=== PATIENT | female | born 1945 | race Caucasian/White ===

== ENCOUNTER 2017-10-26 16:17 | Inpatient (IN) | payer MEDICARE, OTHER ==
[~2017-10-26] VITALS: Ht 152.4 cm; Wt 47.9 kg
[2017-10-26] VITALS (12 sets, daily range): BP systolic 79–103; BP diastolic 50–75
[2017-10-26] MEDS ORDERED: ACETAMINOPHEN 500 MG TAB (TYLENOL) PO PRN (16:45)
[2017-10-26] MEDS ORDERED: ONDANSETRON 4 MG/2 ML (SDV) Z0FRAN IVP PRN (16:45)
[2017-10-26] MEDS ORDERED: methylPREDNISolone 40 MG/ML (Solu-MEDROL) VIAL IV SCH (18:00)
[2017-10-26 18:13] LABS: ABG BASE EXCESS -2.9 MMOL/L (-2.5-2.5); ABG OXYGEN SATURATION 88 % (94-100); ABG PCO2 44 MMHG (35-45); ABG PO2 55 MMHG (79-93); ABG TCO2 23.7 MMOL/L (21.0-31.0)
[2017-10-26 18:15] LABS: ABG PH 7.33 (7.37-7.43); ALLENS TEST POSITIVE; INSPIRED O2 35% BIPAP; PATIENT TEMP 97.4; VENTILATOR NO
[2017-10-26] MEDS: RT-ALBUTEROL/IPRATROPIUM 3 ML (DUONEB) VIAL INH SCH ×2 (18:24→22:15)
[2017-10-26 18:27] LABS: BASOPHILS % (AUTO) 0 % (0-10); EOSINOPHILS % (AUTO) 0 % (0-10); HEMATOCRIT 23 % (35-52); HEMOGLOBIN 7.4 G/DL (11.5-16.0); LYMPHOCYTES # (AUTO) 0.2 X 10^3 (1.0-4.0); LYMPHOCYTES % (AUTO) 2 % (12-44); MEAN CORPUSCULAR HEMOGLOBIN 32 PG (25-34); MEAN CORPUSCULAR HGB CONC 32 G/DL (32-36); MEAN CORPUSCULAR VOLUME 99 FL (80-99); MEAN PLATELET VOLUME 9.1 FL (7.4-10.4); MONOCYTES # (AUTO) 0.1 X 10^3 (0.0-1.0); MONOCYTES % (AUTO) 1 % (0-12); NEUTROPHILS # (AUTO) 10.6 X 10^3 (1.8-7.8); NEUTROPHILS % (AUTO) 97 % (42-75); PLATELET COUNT 317 10^3/uL (130-400); RED BLOOD COUNT 2.34 10^6/uL (4.35-5.85); RED CELL DISTRIBUTION WIDTH 14.3 % (10.0-14.5)
[2017-10-26] MEDS ORDERED: CATHETER FLUSH 10 ML SYR IV PRN (18:30)
[2017-10-26 18:45] LABS: ALANINE AMINOTRANSFERASE 12 U/L (0-55); ALBUMIN 2.7 GM/DL (3.2-4.5); ALKALINE PHOSPHATASE 46 U/L (40-136); BILIRUBIN,TOTAL 0.1 MG/DL (0.1-1.0); BUN/CREATININE RATIO 27; CALCIUM 6.6 MG/DL (8.5-10.1); CARBON DIOXIDE 21 MMOL/L (21-32); CHLORIDE 113 MMOL/L (98-107); CREATININE SERUM 0.55 MG/DL (0.60-1.30); GFR ESTIMATED > 60; GLUCOSE 145 MG/DL (70-105); POTASSIUM 4.1 MMOL/L (3.6-5.0); SODIUM 141 MMOL/L (135-145); TOTAL PROTEIN 4.9 GM/DL (6.4-8.2)
[2017-10-26] MEDS ORDERED: NS IV 500 ML 500 ML IV ONE (20:30)
[2017-10-26] MEDS: RT-BUDESONIDE NEBS 0.5 MG/2ML (PULMICORT) AMP INH SCH (20:32)
[2017-10-26] MEDS: LORazepam INJ 2 MG/ML (ATIVAN) VIAL IVP PRN (20:44)
[2017-10-26] MEDS: NS IV 1000 ML 1,000 ML IV SCH (20:52)
[2017-10-26 21:28] LABS: BILIRUBIN,URINE NEGATIVE (NEGATIVE); CLARITY,URINE VERY CLOUDY; COLOR,URINE YELLOW; GLUCOSE, URINE (UA) NEGATIVE (NEGATIVE); KETONES,URINE NEGATIVE (NEGATIVE); LEUKOCYTE ESTERASE ,URINE 3+ (NEGATIVE); NITRITE,URINE NEGATIVE (NEGATIVE); PH,URINE 6 (5-9); PROTEIN,URINE 2+ (NEGATIVE); UROBILINOGEN,URINE NORMAL (NORMAL)
[2017-10-26] MEDS ORDERED: meTOprolol 5 MG/5 ML (LOPRESSOR) VIAL IV NR (21:30)
[2017-10-26 21:39] LABS: BACTERIA,URINE FEW /HPF; WBC,URINE 50-100 /HPF
[2017-10-26] MEDS ORDERED: RT-ALBUTEROL/IPRATROPIUM 3 ML (DUONEB) VIAL INH PRN (21:45)
[2017-10-27] VITALS (35 sets, daily range): BP systolic 79–135; BP diastolic 49–80
[2017-10-27] MEDS ORDERED: VANCOMYCIN 1000 MG/VIAL ONE
[2017-10-27] MEDS ORDERED: NS (IVPB) 0 ML ONE
[2017-10-27] MEDS: NS IV 1000 ML 1,000 ML IV SCH ×3 (00:34→12:13)
[2017-10-27] MEDS: RT-ALBUTEROL/IPRATROPIUM 3 ML (DUONEB) VIAL INH SCH ×6 (02:05→22:46)
[2017-10-27] MEDS ORDERED: methylPREDNISolone 40 MG/ML (Solu-MEDROL) VIAL IV SCH (03:00)
[2017-10-27 04:57] LABS: ABG BASE EXCESS -3.8 MMOL/L (-2.5-2.5); ABG OXYGEN SATURATION 98 % (94-100); ABG PCO2 30 MMHG (35-45); ABG PH 7.44 (7.37-7.43); ABG PO2 89 MMHG (79-93); ABG TCO2 20.6 MMOL/L (21.0-31.0)
[2017-10-27 04:58] LABS: ALLENS TEST YES-POS; INSPIRED O2 30%; PATIENT TEMP 98.6; VENTILATOR NO
[2017-10-27 05:27] LABS: BASOPHILS % (AUTO) 0 % (0-10); EOSINOPHILS # (AUTO) 0.1 10^3/uL (0.0-0.3); EOSINOPHILS % (AUTO) 0 % (0-10); HEMATOCRIT 26 % (35-52); HEMOGLOBIN 8.4 G/DL (11.5-16.0); LYMPHOCYTES # (AUTO) 0.5 X 10^3 (1.0-4.0); LYMPHOCYTES % (AUTO) 4 % (12-44); MEAN CORPUSCULAR HEMOGLOBIN 32 PG (25-34); MEAN CORPUSCULAR HGB CONC 32 G/DL (32-36); MEAN CORPUSCULAR VOLUME 100 FL (80-99); MEAN PLATELET VOLUME 9.4 FL (7.4-10.4); MONOCYTES # (AUTO) 0.1 X 10^3 (0.0-1.0); MONOCYTES % (AUTO) 1 % (0-12); NEUTROPHILS # (AUTO) 10.8 X 10^3 (1.8-7.8); NEUTROPHILS % (AUTO) 94 % (42-75); PLATELET COUNT 332 10^3/uL (130-400); RED BLOOD COUNT 2.61 10^6/uL (4.35-5.85); RED CELL DISTRIBUTION WIDTH 14.7 % (10.0-14.5); WHITE BLOOD COUNT 11.5 10^3/uL (4.3-11.0)
[2017-10-27] MEDS: fentaNYL INJECTION 100 MCG/2 ML AMP IVP PRN ×3 (05:40→23:50)
[2017-10-27 05:56] LABS: ALANINE AMINOTRANSFERASE 12 U/L (0-55); ALBUMIN 2.9 GM/DL (3.2-4.5); ALKALINE PHOSPHATASE 51 U/L (40-136); BILIRUBIN,TOTAL 0.2 MG/DL (0.1-1.0); BUN/CREATININE RATIO 26; CALCIUM 7.1 MG/DL (8.5-10.1); CARBON DIOXIDE 17 MMOL/L (21-32); CHLORIDE 114 MMOL/L (98-107); GFR ESTIMATED > 60; GLUCOSE 129 MG/DL (70-105); POTASSIUM 4.1 MMOL/L (3.6-5.0); SODIUM 145 MMOL/L (135-145); TOTAL PROTEIN 5.4 GM/DL (6.4-8.2)
--- NOTE | 2017-10-27 06:02 | Pulmonary Consultation ---
History of Present Illness History of Present Illness Date of Consultation 10/27/17 05:57 Time Seen by Provider: 05:57 Date of Admission History of Present Illness 72yo presented to [facility] [place] secondary to worsening SOB. Upon ED admission pt appeared to be in respiratory distress transferred here for higher level of care. Pt was requiring BiPAP however is doing much better this AM. I am consulted for pulmonary/CC management. Allergies and Home Medications Allergies Coded Allergies: No Known Drug Allergies (Unverified , 10/26/17) Home Medications Alprazolam 0.25 Mg Tablet, 0.125 MG PO BID PRN for ANXIETY, (Reported) Amoxicillin/Potassium Clav 1 Each Tablet, 1 TAB PO BID for 7 Days, (Reported) 7 DAY SUPPLY FILLED 10-25-17 Ascorbic Acid 500 Mg Tablet, 500 MG PO 1300, (Reported) Aspirin 81 Mg Tablet.dr, 81 MG PO BID, (Reported) Budesonide/Formoterol Fumarate 10.2 Gm Hfa.aer.ad, 2 PUFF INH 1500,2100, ( Reported) Calcium Carbonate/Vitamin D3 1 Each Tablet, 1 TAB PO 1500,2100, (Reported) Calcium Polycarbophil 625 Mg Tablet, 625 MG PO UD, (Reported) TAKES DAILY X3 DAYS THEN OFF 3 DAYS THEN REPEAT Esomeprazole Magnesium 40 Mg Cap, 40 MG PO BID, (Reported) Ferrous Sulfate 220 Mg/5 Ml Elixir, 5 ML PO BID, (Reported) Furosemide 20 Mg Tablet, 20 MG PO DAILY, (Reported) Garlic 500 Mg Tablet, 1 TAB PO BID, (Reported) Garlic 500 Mg Tablet, 2 TAB PO 1300, (Reported) Glucosa Pierce 2Kcl/Chondroitin Pierce 1 Each Capsule, 1 CAP PO DAILY, (Reported) Guaifenesin/Dextromethorphan 1 Each Tbmp.12hr, 1 TAB PO BID, (Reported) Ibandronate Sodium 150 Mg Tablet, 150 MG PO MONTHLY ON THE 1ST, (Reported) Ipratropium/Albuterol Sulfate 3 Ml Ampul.neb, 3 ML IH Q6H PRN for SHORTNESS OF BREATH, (Reported) Levothyroxine Sodium 50 Mcg Tablet, 50 MCG PO DAILY, (Reported) Methylprednisolone 4 Mg Tab.ds.pk, PO UD for 6 Days, (Reported) 6 DAY SUPPLY FILLED 10-25-17 Metoprolol Succinate 25 Mg Tab.er.24h, 25 MG PO DAILY, (Reported) Nystatin 15 Gm Cream..g., TOP QID PRN for RASH, (Reported) [place] 3 Polyunsat Fatty Acids 1,000 Mg Cap, 2,000 MG PO DAILY, (Reported) TAKES 2 (1000MG) CAPSULES Oxymetazoline HCl 30 Ml [place], 2-3 SPRAY NS BID PRN for CONGESTION, (Reported) Potassium Chloride 10 Meq Tab.er.prt, 10 MEQ PO DAILY, (Reported) Raloxifene HCl 60 Mg Tablet, 60 MG PO 1400, (Reported) Tiotropium [place] 1 Inh Aerp, 1 CAP INH DAILY, (Reported) Past Sehuzir-Xkavxc-Igedcq Hx Patient Social History Alcohol Use: Denies Use Recreational Drug Use: No Smoking Status: Former Smoker Type Used: Cigarettes Recent Foreign Travel: No Contact w/Someone Who Travel: No Recent Infectious Disease Expo: No Recent Hopitalizations: Yes Immunizations Up To Date Date of Pneumonia Vaccine: Oct 17, 2016 Seasonal Allergies Seasonal Allergies: No Surgeries History of Surgeries: Yes Respiratory History of Respiratory Disorde: Yes Respiratory Disorders: COPD, Emphysema Currently Using BIPAP: Yes Cardiovascular History of Cardiac Disorders: Yes (TACHYCARDIA) Neurological History of Neurological Disord: No Genitourinary History of Genitourinary Disor: No Gastrointestinal History of Gastrointestinal Di: Yes Gastrointestinal Disorders: Gastroesophageal Reflux Musculoskeletal History of Musculoskeletal Dis: Yes Musculoskeletal Disorders: Osteoporosis, Fractures Endocrine History of Endocrine Disorders: No HEENT History of HEENT Disorders: No Cancer History of Cancer: No Psychosocial History of Psychiatric Problem: Yes Behavioral Health Disorders: Anxiety Integumentary History of Skin or Integumenta: No Review of Systems Time Seen by Provider: 06:10 Constitutional: Weakness, Malaise Respiratory: Shortness of breath, SOB with excertion, Wheezing Cardiovascular: Palpitations, Paroxysmal Noc. Dyspnea Neurological: Weakness Exam Exam Vital Signs Date Time Temp Pulse Resp B/P (MAP) Pulse Ox O2 Delivery O2 Flow Rate FiO2 10/27/17 05:41 OxyMask 2.00 10/27/17 04:21 108 25 99 30.00 10/27/17 04:09 98.4 NIV Bilevel 10/27/17 04:00 107 19 106/57 (73) 98 NIV Bilevel 30.00 10/27/17 04:00 96 NIV Bilevel 30.00 10/27/17 03:00 111 21 109/75 (86) 99 NIV Bilevel 30.00 10/27/17 02:05 99 24 99 30.00 10/27/17 02:00 101 25 94/61 (72) 100 NIV Bilevel 30.00 10/27/17 01:00 102 10/27/17 01:00 102 25 79/49 (59) 99 NIV Bilevel 30.00 10/27/17 00:43 107 35 99 30.00 10/27/17 00:00 107 14 89/59 (69) 98 NIV Bilevel 30.00 10/27/17 00:00 96 NIV Bilevel 30.00 10/27/17 00:00 98.9 10/26/17 23:00 108 34 97/61 (73) 97 NIV Bilevel 30.00 10/26/17 22:16 96 26 99 30.00 10/26/17 22:00 98 19 80/50 (60) 98 NIV Bilevel 30.00 10/26/17 21:30 112 31 95/65 (75) 97 NIV Bilevel 30.00 10/26/17 21:00 111 33 97/56 (70) 96 NIV Bilevel 25.00 10/26/17 20:33 107 25 93/59 (70) 99 NIV Bilevel 25.00 10/26/17 20:33 107 26 99 30.00 10/26/17 20:00 112 21 96/63 (74) 98 NIV Bilevel 30.00 10/26/17 20:00 98 NIV Bilevel 30.00 10/26/17 19:00 128 10/26/17 19:00 128 28 103/61 (75) 94 NIV Bilevel 30.00 10/26/17 18:45 125 31 92/72 (79) 96 NIV Bilevel 30.00 10/26/17 18:30 112 30 92/75 (81) 99 NIV Bilevel 30.00 10/26/17 18:15 112 28 95/64 (74) 100 NIV Bilevel 30.00 10/26/17 18:02 112 10/26/17 18:00 112 100 35 10/26/17 18:00 97.4 116 30 94/69 (77) 100 NIV Bilevel 30.00 10/26/17 18:00 112 26 100 35.00 10/26/17 17:50 NIV Bilevel 35 I & O 10/27/17 07:00 Intake Total 500 ml Output Total 325 ml Balance 175 ml General Appearance: Anxious, Moderate Distress Neck: No Carotid Bruit Respiratory: Chest Non Tender, Normal Breath Sounds, No Accessory Muscle Use, No Respiratory Distress Cardiovascular: Regular Rate, Rhythm, No Edema, No Gallop Gastrointestinal: non tender, soft Neurologic/Psychiatric: Alert, Oriented x3 Skin: Normal Color, Warm/Dry Lymphatic: No Adenopathy Results Lab Laboratory Tests 10/26/17 18:15 10/27/17 05:05 Assessment/Plan Assessment/Plan Acute Respiratory Distress -BiPAP -Titrate Fi02 COPDAE -SVNs, advair -SOlumedrol Debility/weakness -PT/ot -I question if she needs assisted living UTI -start Zosyn Allergic rhinitis -singulair, claritin, flonase 255 Clinical Quality Measures DVT/VTE Risk/Contraindication: Risk Factor Score Per Nursin RFS Level Per Nursing on Admit: 4+=Very High PINEDA ROBB DO Oct 27, 2017 06:02
[2017-10-27] MEDS ORDERED: PIPERACILLIN SODIUM/TAZOBACTAM 4.5 GM in NS (IVPB) 100 ML IV SCH (06:15)
[2017-10-27] MEDS ORDERED: ENOXAPARIN 40 MG/0.4 ML (LOVENOX) SYR SC SCH (07:00)
[2017-10-27] MEDS: RT-ADVAIR HFA 115/21 MCG PER PUFF IH SCH ×2 (07:07→18:54)
[2017-10-27] MEDS: RT-BUDESONIDE NEBS 0.5 MG/2ML (PULMICORT) AMP INH SCH ×2 (07:07→18:53)
[2017-10-27] MEDS ORDERED: PIPERACILLIN SODIUM/TAZOBACTAM 4.5 GM in NS (IVPB) 100 ML IV NR ×2 (07:15→09:00)
[2017-10-27] MEDS: LORATADINE (CLARITIN) 10 MG TAB PO SCH (08:48)
[2017-10-27] MEDS: SALINE NASAL SPRAY (OCEAN) 45 ML BTL SCH ×4 (08:48→20:12)
[2017-10-27] MEDS: FLUTICASONE NASAL SPRAY (FLONASE) 16 GM BTL NS SCH (08:48)
[2017-10-27] MEDS: ENOXAPARIN 40 MG/0.4 ML (LOVENOX) SYR SC SCH (08:58)
[2017-10-27] MEDS: methylPREDNISolone 40 MG/ML (Solu-MEDROL) VIAL IV SCH ×3 (08:58→20:12)
[2017-10-27] MEDS: PIPERACILLIN SODIUM/TAZOBACTAM 4.5 GM in NS (IVPB) 100 ML IV SCH ×2 (08:58→18:38)
[2017-10-27] MEDS: LORazepam INJ 2 MG/ML (ATIVAN) VIAL IVP PRN ×3 (09:08→20:12)
--- NOTE | 2017-10-27 09:09 | Physical Therapy Progress Note ---
Therapy Progress Note Patient currently on BiPap and declined PT intervention. Per RN, they did a trial off the Bipap and patient was unable to tolerate it and was put back on it. PT will attempt in p.m. 1 visit no treatment rendered SHIRLEY CORTÉS PT Oct 27, 2017 09:09
[2017-10-27] MEDS: guaiFENesin SYRUP 100 MG/5 ML 10 ML (ROBITUSSIN SF) PO PRN (10:20)
--- NOTE | 2017-10-27 11:04 | Occ Therapy Progress Note ---
Therapy Progress Note Order received for OT eval and treat. Chart review completed. Spoke with RN regarding pt status. RN states pt is okay for minimal bed level activity as tolerated, states pt is on Bi-pap and de-sats quickly when off. Attempted OT evaluation at 1030. Pt refused all therapy, states she doesn't feel like participating. Pt states she has shoulder trouble and does not want to participate in any UE activity. Will hold therapy today per pt request and will initiate when pt able to tolerate/participate in functional activity. Discussed with RN. 1, visit CHELLE SOUSA OT Oct 27, 2017 11:04
--- NOTE | 2017-10-27 11:35 | Diagnostic Imaging Report ---
Portable erect AP chest at 5:12 a.m. INDICATION: Respiratory distress. COMPARISON: There are no prior studies available for comparison. FINDINGS: This study is less than optimal as the patient is rotated. The heart size is within normal limits. There are coarse interstitial densities in the right upper lobe. These findings may well be chronic in nature. The possibility that there is an element of acute pneumonia/atelectasis in this region should still be considered. If previous exams are available, they would be helpful with comparison. There is also a 1 cm nodular density along the periphery of the right upper lung. This may be related to the ventilator apparatus as opposed to a parenchymal nodule. The lungs are otherwise generally clear. There is no significant pleural effusion identified. The heart and mediastinum is not widened. The osseous structures are intact. IMPRESSION: 1. The coarse interstitial densities in the right upper lung may be long-standing in nature but the possibility that there is an acute pneumonia/atelectasis should still be considered. If there are no previous exams available for comparison, a followup study would be recommend for continued evaluation. 2. There is no acute cardiopulmonary abnormality noted otherwise. Dictated by: Dictated on workstation # [id number]
--- NOTE | 2017-10-27 11:41 | Physical Therapy Progress Note ---
Therapy Progress Note Patient "waved off" PT and declined therapy intervention on this date. Patient continues to require BiPap for pulmonary issues. Will attempt in a.m. 1 ref SHIRLEY CORTÉS PT Oct 27, 2017 11:41
--- NOTE | 2017-10-27 12:41 | History & Physical-Hospitalist ---
HPI History of Present Illness: HPI/Chief Complaint CC: Transfer [place] [facility] [place] due to [place] failure HPI: This is a [address] Romo who presented to [facility] [place] following exacerbation of COPD and was tranferred to higher level of care at [facility]. 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 Pt tried very hard to discuss something with me that was inaudible through her mask. The RN was asked to help and the pt stated that she wants to wear her own compression stockings, not the ones she has on. Pt was informed that we can contact someone to bring her stockings. Physical exam stable. Scribed by Mariela Vaca under direct supervision of Dr. Lyndsey Acosta. Source: patient Exam Limitations: clinical condition Date Seen 10/27/17 Time Seen by Provider: 11:00 Attending Physician Lyndsey Acosta Lisa A MD Referring Physician Date of Admission Oct 26, 2017 at 17:50 Home Medications & Allergies Home Medications Reviewed patient Home Medication Reconciliation Form Allergies Allergies Coded Allergies No Known Drug Allergies ([id number]/28/17) Past Eguhhug-Mapzkc-Eqjhcc Hx Patient Social History Marrital Status: single Employed/Student: retired Alcohol Use: Denies Use Recreational Drug Use: No Smoking Status: Former Smoker Type Used: Cigarettes Physical Abuse Screen: No Sexual Abuse: No Recent Foreign Travel: No Contact w/other who traveled: No Recent Hopitalizations: Yes Recent Infectious Disease Expo: No Immunizations Up To Date Date of Pneumonia Vaccine: Oct 17, 2016 Seasonal Allergies Seasonal Allergies: No Surgeries Yes Respiratory Yes COPD, Emphysema, Pneumonia Currently Using BIPAP: Yes Cardiovascular Yes (TACHYCARDIA) Neurological No Genitourinary No Gastrointestinal Yes Gastroesophageal Reflux Musculoskeletal Yes Osteoporosis, Fractures Endocrine History of Endocrine Disorders: No HEENT History of HEENT Disorders: No Cancer No Psychosocial History of Psychiatric Problem: Yes Behavioral Health Disorders: Anxiety Integumentary History of Skin or Integumenta: No Review of Systems ROS-Unable to Obtain: unable to ascertain due to biPAP mask Constitutional: see HPI Physical Exam Physical Exam Vital Signs Vital Sign - Last 12Hours 10/26/17 10/26/17 17:50 18:00 Temp 97.4 Pulse 112 Resp 26 B/P (MAP) 94/69 (77) Pulse Ox 100 O2 Delivery NIV Bilevel O2 Flow Rate 35.00 FiO2 35 Capillary Refill : General Appearance: WD/WN, Chronically ill, Cachetic, Mild Distress, Thin Eyes: Bilateral Eye Normal Inspection, Bilateral Eye PERRL HEENT: PERRL/EOMI, Normal ENT Inspection, Pharynx Normal Neck: Full Range of Motion, Normal Inspection, Non Tender, Supple, Carotid Bruit Respiratory: Chest Non Tender, No Accessory Muscle Use, No Respiratory Distress , Decreased Breath Sounds, Wheezing Cardiovascular: Regular Rate, Rhythm, No Edema, No Gallop, No JVD, No Murmur, Normal Peripheral Pulses Gastrointestinal: Normal Bowel Sounds, No Organomegaly, No Pulsatile Mass, Non Tender, Soft Back: Normal Inspection, No CVA Tenderness, No Vertebral Tenderness Extremity: Normal Capillary Refill, Normal Inspection, Normal Range of Motion, Non Tender, No Calf Tenderness, No Pedal Edema Neurologic/Psychiatric: Alert, Oriented x3, No Motor/Sensory Deficits, Depressed Affect Skin: Normal Color, Warm/Dry Lymphatic: No Adenopathy Results Results/Procedures Lab Laboratory Tests 10/26/17 18:15 10/27/17 05:05 Assessment/Plan Admission Diagnosis Assessment: Acute on chronic respiratory failure Acute bronchitis w/early right upper lobe infiltrate on CXR Frail status Chronic 24/7 O2 dependency Assessment and Plan Plan: Obtain compression stockings from home Monitor pt May need intubation Poor prognosis if requires intubation due to severe COPD Appreciate Dr Tubbs's help Clinical Quality Measures DVT/VTE Risk/Contraindication: Risk Factor Score Per Nursin RFS Level Per Nursing on Admit: 4+=Very High LYNDSEY ACOSTA DO Oct 27, 2017 12:41
[2017-10-27] MEDS ORDERED: OXYM30SP NS (13:47)
[2017-10-27] MEDS ORDERED: GUAI1TBM19 PO (13:47)
[2017-10-27] MEDS ORDERED: GLUC1CAP37 PO (13:47)
[2017-10-27] MEDS ORDERED: IPRA3AMP IH (13:47)
[2017-10-27] MEDS ORDERED: RALO60TA12 PO (13:47)
[2017-10-27] MEDS ORDERED: CALC625T68 PO (13:47)
[2017-10-27] MEDS ORDERED: ASCO500T6 PO (13:47)
[2017-10-27] MEDS ORDERED: NYST15CR TOP (13:47)
[2017-10-27] MEDS ORDERED: NF-ESOM40C PO (13:47)
[2017-10-27] MEDS ORDERED: BUDE10.2 INH (13:47)
[2017-10-27] MEDS ORDERED: GARL500T4 PO ×2 (13:47)
[2017-10-27] MEDS ORDERED: FESO45ML PO (13:47)
[2017-10-27] MEDS ORDERED: LEVO50TA6 PO (13:47)
[2017-10-27] MEDS ORDERED: METO-351 PO (13:47)
[2017-10-27] MEDS ORDERED: TIOT18CA2 INH (13:47)
[2017-10-27] MEDS ORDERED: AMOX1TAB12 PO (13:47)
[2017-10-27] MEDS ORDERED: IBAN150T8 PO (13:47)
[2017-10-27] MEDS ORDERED: ALPR0.254 PO (13:47)
[2017-10-27] MEDS ORDERED: POTA10TA14 PO (13:47)
[2017-10-27] MEDS ORDERED: CALC-903 PO (13:47)
[2017-10-27] MEDS ORDERED: FURO20TA4 PO (13:47)
[2017-10-27] MEDS ORDERED: METH4TAB10 PO (13:47)
[2017-10-27] MEDS ORDERED: OMG1KC PO (13:47)
[2017-10-27] MEDS ORDERED: ASPI-983 PO (13:47)
[2017-10-27] MEDS ORDERED: VANCOMYCIN 750 MG/NS 250 ML IVPB IV NR ×2 (16:37)
[2017-10-27] MEDS ORDERED: VANCOMYCIN 500 MG/NS 100 ML IVPB IV SCH ×2 (16:45)
[2017-10-27] MEDS: MONTELUKAST 10 MG (SINGULAIR) TAB PO SCH (20:12)
[2017-10-28] VITALS (27 sets, daily range): BP systolic 103–158; BP diastolic 63–116
[2017-10-28] MEDS: NS IV 1000 ML 1,000 ML IV SCH (01:43)
[2017-10-28] MEDS: RT-ALBUTEROL/IPRATROPIUM 3 ML (DUONEB) VIAL INH SCH ×6 (01:43→21:31)
[2017-10-28] MEDS: PIPERACILLIN SODIUM/TAZOBACTAM 4.5 GM in NS (IVPB) 100 ML IV SCH ×3 (01:43→17:40)
[2017-10-28] MEDS: guaiFENesin SYRUP 100 MG/5 ML 10 ML (ROBITUSSIN SF) PO PRN ×2 (01:43→16:39)
[2017-10-28] MEDS: methylPREDNISolone 40 MG/ML (Solu-MEDROL) VIAL IV SCH ×4 (03:23→20:16)
[2017-10-28 04:44] LABS: ABG BASE EXCESS -3.1 MMOL/L (-2.5-2.5); ABG OXYGEN SATURATION 97 % (94-100); ABG PCO2 39 MMHG (35-45); ABG PH 7.36 (7.37-7.43); ABG PO2 74 MMHG (79-93); ALLENS TEST YES-POS; INSPIRED O2 30%
[2017-10-28 04:45] LABS: PATIENT TEMP 97.1; VENTILATOR NO
[2017-10-28 05:25] LABS: BUN/CREATININE RATIO 18; CALCIUM 6.7 MG/DL (8.5-10.1); CARBON DIOXIDE 20 MMOL/L (21-32); CHLORIDE 118 MMOL/L (98-107); CREATININE SERUM 0.51 MG/DL (0.60-1.30); GFR ESTIMATED > 60; GLUCOSE 129 MG/DL (70-105); MAGNESIUM 1.4 MG/DL (1.8-2.4); POTASSIUM 2.7 MMOL/L (3.6-5.0); SODIUM 150 MMOL/L (135-145)
[2017-10-28] MEDS: KCL 20 MEQ TAB (K-DUR) PO SCH (06:02)
[2017-10-28] MEDS: fentaNYL INJECTION 100 MCG/2 ML AMP IVP PRN (06:26)
[2017-10-28] MEDS: RT-BUDESONIDE NEBS 0.5 MG/2ML (PULMICORT) AMP INH SCH ×2 (07:07→18:26)
--- NOTE | 2017-10-28 07:15 | Diagnostic Imaging Report ---
Portable erect AP chest at 544 hours. INDICATION: Respiratory distress. FINDINGS: The heart size is within normal limits and stable when compared to 03/27/2017. The previous exam did show coarse interstitial densities in the right upper lobe. The right upper lung does seem better aerated on this exam. The chronic pulmonary changes involving the lung bases noted previously are again visualized. In the interval since the previous study, a small amount of fluid has developed in each lung base and there is now a vague area of slightly increased density overlying the left midlung. This may be secondary to pneumonia/atelectasis. The mediastinum is not widened. The osseous structures are intact. IMPRESSION: There are mixed results. The right upper lung does seem better aerated but there is a new area of slightly increased density in the left midlung which may be secondary to pneumonia/atelectasis. Small bilateral pleural effusions have also developed. A followup exam would be recommended for continued evaluation. Dictated by: Dictated on workstation # [id number]
[2017-10-28] MEDS: POTASSIUM CL 10MEQ/50ML IVPB 50 ML IV SCH ×5 (07:21→17:43)
[2017-10-28] MEDS: MAGNESIUM 1 GM/100 ML IVPB 100 ML IV SCH (07:21)
[2017-10-28] MEDS: 1/2 NS IV SOLUTION 1,000 ML IV SCH ×3 (07:48→21:11)
[2017-10-28] MEDS: MAGNESIUM 1 GM/D5W 100 ML IVPB IV SCH ×2 (07:49→08:39)
[2017-10-28] MEDS: POTASSIUM CL 10 MEQ/50 ML IVPB (PRE-MIX) IV SCH ×4 (07:49→11:03)
[2017-10-28] MEDS ORDERED: NS (IVPB) 100 ML ONE (08:20)
[2017-10-28] MEDS: LORazepam INJ 2 MG/ML (ATIVAN) VIAL IVP PRN (08:31)
[2017-10-28] MEDS: ENOXAPARIN 40 MG/0.4 ML (LOVENOX) SYR SC SCH (08:38)
[2017-10-28] MEDS: FLUTICASONE NASAL SPRAY (FLONASE) 16 GM BTL NS SCH (08:54)
[2017-10-28] MEDS: SALINE NASAL SPRAY (OCEAN) 45 ML BTL SCH ×4 (08:54→21:11)
[2017-10-28] MEDS: LORATADINE (CLARITIN) 10 MG TAB PO SCH (08:55)
[2017-10-28] MEDS: RT-ADVAIR HFA 115/21 MCG PER PUFF IH SCH ×2 (09:35→18:38)
--- NOTE | 2017-10-28 09:39 | Occ Therapy Progress Note ---
Therapy Progress Note 910 Pt refused OT, still on BiPap and fatigued. ULISSES FRAIRE OT Oct 28, 2017 09:39
--- NOTE | 2017-10-28 09:48 | Pulmonary Progress Note ---
Subjective Time Seen by Provider: 09:50 Subjective/Events-last exam Pt is not tolerating being off BiPAP Exam Exam Vital Signs Date Time Temp Pulse Resp B/P (MAP) Pulse Ox O2 Delivery O2 Flow Rate FiO2 10/28/17 09:36 120 28 96 25.00 10/28/17 07:50 98.9 10/28/17 07:08 117 28 94 30.00 10/28/17 07:00 105 10/28/17 07:00 105 21 128/74 (92) 98 NIV Bilevel 30.00 10/28/17 06:00 116 27 144/97 (113) 97 NIV Bilevel 30.00 10/28/17 05:00 111 24 133/77 (95) 98 NIV Bilevel 30.00 10/28/17 04:18 123 29 95 30.00 10/28/17 04:00 94 NIV Bilevel 30 10/28/17 04:00 122 24 132/86 (101) 98 NIV Bilevel 30.00 10/28/17 03:00 115 21 127/71 (89) 98 NIV Bilevel 30.00 10/28/17 02:00 124 25 128/78 (95) 96 NIV Bilevel 30.00 10/28/17 01:43 128 29 94 30.00 10/28/17 01:00 111 19 105/64 (78) 98 NIV Bilevel 30.00 10/28/17 01:00 111 10/28/17 00:00 129 12 103/63 (76) 95 NIV Bilevel 30.00 10/28/17 00:00 97 NIV Bilevel 30 10/27/17 23:00 116 27 135/80 (98) 96 NIV Bilevel 30.00 10/27/17 22:46 112 28 98 30.00 10/27/17 22:00 107 25 104/69 (81) 99 NIV Bilevel 30.00 10/27/17 21:00 111 23 111/61 (78) 99 NIV Bilevel 30.00 10/27/17 20:00 126 30 120/69 (86) 96 NIV Bilevel 30.00 10/27/17 20:00 NIV Bilevel 30 10/27/17 19:00 104 24 100/58 (72) 98 NIV Bilevel 30.00 10/27/17 19:00 104 10/27/17 18:54 102 24 98 30.00 10/27/17 18:00 107 26 97/60 (72) 98 NIV Bilevel 30.00 10/27/17 17:12 97.9 10/27/17 17:00 110 21 94/52 (66) 99 NIV Bilevel 30.00 10/27/17 16:12 129 32 97 30.00 10/27/17 16:10 NIV Bilevel 30 10/27/17 16:00 128 30 115/77 (90) 97 NIV Bilevel 30.00 10/27/17 15:00 125 21 102/58 (73) 97 NIV Bilevel 30.00 10/27/17 14:35 95 NIV Bilevel 30.00 10/27/17 14:24 122 26 98 32.00 10/27/17 14:00 118 26 105/74 (84) 100 NIV Bilevel 32.00 10/27/17 13:00 120 10/27/17 13:00 120 24 112/69 (83) 98 NIV Bilevel 32.00 10/27/17 12:52 124 27 98 32.00 10/27/17 12:38 98.0 10/27/17 12:15 NIV Bilevel 32 10/27/17 12:00 116 22 105/61 (76) 99 NIV Bilevel 32.00 10/27/17 11:00 125 20 94/60 (71) 98 NIV Bilevel 32.00 10/27/17 10:44 NIV Bilevel 32.00 10/27/17 10:21 121 24 95 25.00 10/27/17 10:00 117 31 113/69 (84) 96 NIV Bilevel 25.00 I & O 10/28/17 07:00 Intake Total 2560 ml Output Total 1350 ml Balance 1210 ml General Appearance: WD/WN, Chronically ill, Cachetic, Mild Distress, Thin HEENT: PERRL/EOMI, Normal ENT Inspection, Pharynx Normal Neck: Full Range of Motion, Normal Inspection, Non Tender, Supple, Carotid Bruit Respiratory: Chest Non Tender, No Accessory Muscle Use, No Respiratory Distress , Decreased Breath Sounds, Wheezing Cardiovascular: Regular Rate, Rhythm, No Edema, No Gallop, No JVD, No Murmur, Normal Peripheral Pulses Extremity: Normal Capillary Refill, Normal Inspection, Normal Range of Motion, Non Tender, No Calf Tenderness, No Pedal Edema Neurologic/Psychiatric: Alert, Oriented x3, No Motor/Sensory Deficits, Depressed Affect Skin: Normal Color, Warm/Dry Lymphatic: No Adenopathy Results Lab Laboratory Tests 10/26/17 18:15 10/27/17 05:05 10/28/17 04:15 Assessment/Plan Assessment/Plan Acute Respiratory Distress -Add Precedex, and morphine D/C Ativan and Fentanyl -BiPAP -Titrate Fi02 COPDAE -Increase BiPAP to 15/6 -SVNs, advair -SOlumedrol Debility/weakness -PT/ot -I question if she needs assisted living UTI -start Zosyn Allergic rhinitis -singulair, claritin, flonase Guarded prognosis. Pt has severe COPD and will probably be hard to wean from vent if intubated. DNR status should strongly be considered.. 233 Clinical Quality Measures DVT/VTE Risk/Contraindication: Risk Factor Score Per Nursin RFS Level Per Nursing on Admit: 4+=Very High PINEDA ROBB DO Oct 28, 2017 09:48
[2017-10-28] MEDS: DEXMEDETOMIDINE INJECTION 200 MCG in NS (IVPB) 50 ML IV SCH ×2 (10:14→21:10)
--- NOTE | 2017-10-28 10:50 | Physical Therapy Progress Note ---
Therapy Progress Note Pt. in bed with BiPap in place, declines therapy this date, no reason given. We will check pt.'s status 10/30/17. 1, visit only and refusal LANETTE PHILLIPS PT Oct 28, 2017 10:50
[2017-10-28 12:24] LABS: BUN/CREATININE RATIO 16; CALCIUM 6.9 MG/DL (8.5-10.1); CARBON DIOXIDE 23 MMOL/L (21-32); CHLORIDE 117 MMOL/L (98-107); CREATININE SERUM 0.51 MG/DL (0.60-1.30); GFR ESTIMATED > 60; GLUCOSE 149 MG/DL (70-105); MAGNESIUM 2.3 MG/DL (1.8-2.4); POTASSIUM 3.1 MMOL/L (3.6-5.0); SODIUM 151 MMOL/L (135-145)
--- NOTE | 2017-10-28 13:02 | Progress Note-Hospitalist ---
Progress Note HPI/CC on Admission CC: [place] [facility] [place] HPI: This is a 72 [address] 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 Pt tried very hard to discuss something with me that was inaudible through her mask. The RN was asked to help and the pt stated that she wants to wear her own compression stockings, not the ones she has on. Pt was informed that we can contact someone to bring her stockings. Physical exam stable. Scribed by Mariela Vaca under direct supervision of Dr. Lyndsey Acosta. Progress Notes/Assess & Plan Date Seen 10/28/17 Time Seen by Provider: 11:00 Admission Dx/Process Assessment: Acute on chronic respiratory failure Acute bronchitis w/early right upper lobe infiltrate on CXR Frail status Chronic 24/7 O2 dependency Diagonsis/Assessment & Plan Patient still on BiPAP and did not tolerate even 30 seconds on Vapotherm began tachypnea again and overall respiratory failure Patient appears to be very end-stage and if intubation is required she will remain on ventilator long-term and considering how frail of the status she is I do not believe that would be beneficial for her and all considering futility and poor quality of life if that should occur. IV antibiotics maintain for infiltrate on chest x-ray IV steroids maintained Hypernatremia will be managed by changing to one half normal saline and potassium and magnesium will be replaced due to potassium at 2.7 Unable to really communicate with the patient due to BiPAP required and I can't understand her through the mask No fever, vital signs stable, pleasant, BiPAP mask on, frail, pale, chronically ill, very debilitated Regular rate and rhythm Clear to auscultation bilaterally but very diminished all dewitt No edema Laboratory Tests 10/28/17 04:15 10/28/17 11:46 Assessment: Acute on chronic respiratory failure and unable to wean off noninvasive ventilator support Acute bronchitis w/early right upper lobe infiltrate on CXR maintained on abx Frail status and does not appear to be a candidate for long-term intubation due to likelihood of never being able to be extubated and poor quality of life Chronic 24/7 O2 dependency Hypernatremia Hypokalemia Hypomagnesemia Plan: Obtain compression stockings from home Monitor pt May need intubation but if that should occur likely will be unable to extubate and she will need a long-term vent facility and it doesn't appear that her quality of life will improve in that type of situation Poor prognosis if requires intubation due to severe COPD Appreciate Dr Tubbs's help Change IV fluids due to hypernatremia Replace potassium and magnesium LYNDSEY ACOSTA DO Oct 28, 2017 13:02
[2017-10-28] MEDS ORDERED: VANCOMYCIN 500 MG/NS 100 ML IVPB IV SCH ×2 (17:00)
[2017-10-28] MEDS: morphine INJ 4 MG/ML 1 ML (VIAL/SYRINGE) IVP PRN (20:17)
[2017-10-28] MEDS: MONTELUKAST 10 MG (SINGULAIR) TAB PO SCH (21:11)
[2017-10-29] VITALS (34 sets, daily range): BP systolic 122–152; BP diastolic 71–100
[2017-10-29] MEDS: morphine INJ 4 MG/ML 1 ML (VIAL/SYRINGE) IVP PRN ×4 (00:06→17:42)
[2017-10-29] MEDS: PIPERACILLIN SODIUM/TAZOBACTAM 4.5 GM in NS (IVPB) 100 ML IV SCH ×3 (00:07→18:41)
[2017-10-29] MEDS: RT-ALBUTEROL/IPRATROPIUM 3 ML (DUONEB) VIAL INH SCH ×6 (01:40→22:00)
[2017-10-29] MEDS: methylPREDNISolone 40 MG/ML (Solu-MEDROL) VIAL IV SCH ×4 (03:04→21:18)
[2017-10-29] MEDS: DEXMEDETOMIDINE INJECTION 200 MCG in NS (IVPB) 50 ML IV SCH ×4 (03:49→21:36)
[2017-10-29 04:49] LABS: ABG BASE EXCESS -0.5 MMOL/L (-2.5-2.5); ABG OXYGEN SATURATION 97 % (94-100); ABG PCO2 38 MMHG (35-45); ABG PH 7.41 (7.37-7.43); ABG PO2 72 MMHG (79-93); ABG TCO2 24.9 MMOL/L (21.0-31.0)
[2017-10-29 04:54] LABS: ALLENS TEST YES-POS; INSPIRED O2 30%; PATIENT TEMP 97.4; VENTILATOR NO
[2017-10-29 05:12] LABS: BUN/CREATININE RATIO 14; CALCIUM 6.7 MG/DL (8.5-10.1); CARBON DIOXIDE 21 MMOL/L (21-32); CHLORIDE 111 MMOL/L (98-107); CREATININE SERUM 0.49 MG/DL (0.60-1.30); GFR ESTIMATED > 60; GLUCOSE 133 MG/DL (70-105); POTASSIUM 3.3 MMOL/L (3.6-5.0); SODIUM 146 MMOL/L (135-145)
--- NOTE | 2017-10-29 06:06 | Pulmonary Progress Note ---
Subjective Time Seen by Provider: 06:08 Subjective/Events-last exam Pt is doing okay. Exam Exam Vital Signs Date Time Temp Pulse Resp B/P (MAP) Pulse Ox O2 Delivery O2 Flow Rate FiO2 10/29/17 05:00 95 17 135/79 (97) 95 NIV Bilevel 30.00 10/29/17 04:34 97.4 10/29/17 04:00 96 11 129/80 (96) 97 NIV Bilevel 30.00 10/29/17 03:46 96 16 97 30.00 10/29/17 03:00 98 18 126/71 (89) 97 NIV Bilevel 30.00 10/29/17 02:00 114 25 125/91 (102) 93 NIV Bilevel 30.00 10/29/17 01:41 89 21 97 30.00 10/29/17 01:00 87 17 139/88 (105) 97 NIV Bilevel 30.00 10/29/17 01:00 87 10/29/17 00:56 97.1 10/29/17 00:00 92 23 139/91 (107) 97 NIV Bilevel 30.00 10/29/17 00:00 94 NIV Bilevel 30 10/28/17 23:10 98 20 97 30.00 10/28/17 23:00 98 22 137/83 (101) 97 NIV Bilevel 30.00 10/28/17 21:31 93 23 97 30.00 10/28/17 21:00 98 22 118/74 (89) 96 NIV Bilevel 30.00 10/28/17 20:09 112 21 95 30.00 10/28/17 20:00 98.4 115 34 139/88 (105) 95 NIV Bilevel 30.00 10/28/17 20:00 94 NIV Bilevel 30 10/28/17 19:00 111 10/28/17 19:00 111 28 140/83 (102) 94 NIV Bilevel 30.00 10/28/17 18:26 103 20 95 30.00 10/28/17 18:00 91 22 131/84 (100) 97 NIV Bilevel 30.00 10/28/17 17:00 93 22 132/79 (96) 97 NIV Bilevel 30.00 10/28/17 16:25 94 NIV Bilevel 30 10/28/17 16:15 97.4 10/28/17 16:00 105 25 133/85 (101) 96 NIV Bilevel 30.00 10/28/17 15:57 109 25 100 30.00 10/28/17 15:00 95 21 125/78 (94) 97 NIV Bilevel 30.00 10/28/17 14:00 109 26 132/82 (99) 95 NIV Bilevel 30.00 10/28/17 13:33 112 26 94 30.00 10/28/17 13:26 NIV Bilevel 30.00 10/28/17 13:00 96 10/28/17 13:00 96 19 126/80 (95) 99 NIV Bilevel 35.00 10/28/17 12:30 94 NIV Bilevel 30 10/28/17 12:05 98.4 10/28/17 12:00 102 20 115/73 (87) 100 NIV Bilevel 35.00 10/28/17 11:05 113 21 100 35.00 10/28/17 11:00 107 20 110/67 (81) 99 NIV Bilevel 35.00 10/28/17 10:00 118 20 148/79 (102) 99 NIV Bilevel 35.00 10/28/17 09:48 NIV Bilevel 35.00 10/28/17 09:36 120 28 96 25.00 10/28/17 09:25 NIV Bilevel 25.00 10/28/17 09:00 114 20 158/116 (130) 94 NIV Bilevel 30.00 10/28/17 08:15 94 NIV Bilevel 30 10/28/17 08:00 124 25 122/82 (95) 95 NIV Bilevel 30.00 10/28/17 07:50 98.9 10/28/17 07:08 117 28 94 30.00 10/28/17 07:00 105 10/28/17 07:00 105 21 128/74 (92) 98 NIV Bilevel 30.00 I & O 10/29/17 07:00 Intake Total 2814 ml Output Total 1375 ml Balance 1439 ml General Appearance: WD/WN, Chronically ill, Cachetic, Mild Distress, Thin HEENT: PERRL/EOMI, Normal ENT Inspection, Pharynx Normal Neck: Full Range of Motion, Normal Inspection, Non Tender, Supple, Carotid Bruit Respiratory: Chest Non Tender, No Accessory Muscle Use, No Respiratory Distress , Decreased Breath Sounds, Wheezing Cardiovascular: Regular Rate, Rhythm, No Edema, No Gallop, No JVD, No Murmur, Normal Peripheral Pulses Extremity: Normal Capillary Refill, Normal Inspection, Normal Range of Motion, Non Tender, No Calf Tenderness, No Pedal Edema Neurologic/Psychiatric: Alert, Oriented x3, No Motor/Sensory Deficits, Depressed Affect Skin: Normal Color, Warm/Dry Lymphatic: No Adenopathy Results Lab Laboratory Tests 10/28/17 04:15 10/28/17 11:46 10/29/17 04:22 Assessment/Plan Assessment/Plan Acute Respiratory Distress - Precedex, and morphine D/C Ativan and Fentanyl -BiPAP -Titrate Fi02 COPDAE BiPAP to 15/6 -SVNs, advair -SOlumedrol Debility/weakness -PT/ot -I question if she needs assisted living UTI -start Zosyn Allergic rhinitis -singulair, claritin, flonase Guarded prognosis. Pt has severe COPD and will probably be hard to wean from vent if intubated. DNR status should strongly be considered.. 233 Clinical Quality Measures DVT/VTE Risk/Contraindication: Risk Factor Score Per Nursin RFS Level Per Nursing on Admit: 4+=Very High PINEDA ROBB DO Oct 29, 2017 06:06
[2017-10-29] MEDS: KCL 20 MEQ TAB (K-DUR) PO SCH (06:37)
[2017-10-29] MEDS: MAGNESIUM 1 GM/100 ML IVPB 100 ML IV SCH (06:37)
[2017-10-29] MEDS: POTASSIUM CL 10MEQ/50ML IVPB 50 ML IV SCH ×6 (06:39→12:05)
[2017-10-29] MEDS: RT-BUDESONIDE NEBS 0.5 MG/2ML (PULMICORT) AMP INH SCH ×2 (06:51→22:00)
[2017-10-29] MEDS: RT-ADVAIR HFA 115/21 MCG PER PUFF IH SCH ×2 (06:51→20:28)
[2017-10-29] MEDS: 1/2 NS IV SCH ×3 (08:16→19:01)
[2017-10-29] MEDS: POTASSIUM CHLORIDE IV SCH ×3 (08:16→19:01)
[2017-10-29] MEDS: ENOXAPARIN 40 MG/0.4 ML (LOVENOX) SYR SC SCH (08:18)
[2017-10-29] MEDS: SALINE NASAL SPRAY (OCEAN) 45 ML BTL SCH ×4 (08:18→21:19)
[2017-10-29] MEDS: FLUTICASONE NASAL SPRAY (FLONASE) 16 GM BTL NS SCH (08:19)
[2017-10-29] MEDS: LORATADINE (CLARITIN) 10 MG TAB PO SCH (08:19)
--- NOTE | 2017-10-29 10:31 | Diagnostic Imaging Report ---
EXAMINATION: Chest radiograph, portable AP view. DATE: 10/29/2017 at 0547 hours. INDICATION: 72-year-old female, COPD exacerbation. COMPARISON: 10/28/2017. FINDINGS: Heart size and mediastinal contours are unremarkable. There is no identified pneumothorax. There is no large pleural effusion. There are bilateral predominantly interstitial opacities with grossly unchanged overall appearance since comparison exam. Interstitial opacities have a mid and lower lung zone predominance. IMPRESSION: 1. Grossly unchanged bilateral predominantly interstitial opacities with mid and lower lung zone predominance. Dictated by: Dictated on workstation # [id number]
--- NOTE | 2017-10-29 11:55 | Progress Note-Hospitalist ---
Progress Note HPI/CC on Admission CC: Transfer from [facility] [place] due to respiratory failure HPI: This is a [address] Romo who presented to [facility] [place] following exacerbation of COPD and was tranferred to higher level of care at [facility]. medical records director: Pt has done poorly off biPAP Patient Interview: Pt was resting prior to interview. Pt tried very hard to discuss something with me that was inaudible through her mask. The RN was asked to help and the pt stated that she wants to wear her own compression stockings, not the ones she has on. Pt was informed that we can contact someone to bring her stockings. Physical exam stable. Scribed by Mariela Vaca under direct supervision of Dr. Lyndsey Acosta. Progress Notes/Assess & Plan Date Seen 10/29/17 Time Seen by Provider: 10:00 Admission Dx/Process Assessment: Acute on chronic respiratory failure Acute bronchitis w/early right upper lobe infiltrate on CXR Frail status Chronic 24/7 O2 dependency Diagonsis/Assessment & Plan Patient placed on Vapotherm and tachypnea is about the same Patient appears to be very end-stage and if intubation is required she will remain on ventilator long-term and considering how frail of the status she is I do not believe that would be beneficial for her and all considering futility and poor quality of life if that should occur. IV antibiotics maintain for infiltrate on chest x-ray IV steroids maintained Hypernatremia improved with change of IV fluids yesterday Unable to really communicate with the patient due to BiPAP required and I can't understand her through the mask No fever, vital signs stable, pleasant, BiPAP mask on, frail, pale, chronically ill, very debilitated Regular rate and rhythm Clear to auscultation bilaterally but very diminished all dewitt No edema Laboratory Tests 10/29/17 04:22 Assessment: Acute on chronic respiratory failure and unable to wean off aggressive respiratory support now on Vapotherm Acute bronchitis w/early right upper lobe infiltrate on CXR maintained on abx Frail status and does not appear to be a candidate for long-term intubation due to likelihood of never being able to be extubated and poor quality of life Chronic 24/7 O2 dependency Hypernatremia improved Hypokalemia supplementing Hypomagnesemia Plan: Monitor pt May need intubation but if that should occur likely will be unable to extubate and she will need a long-term vent facility and it doesn't appear that her quality of life will improve in that type of situation Poor prognosis if requires intubation due to severe COPD Appreciate Dr Tubbs's help Maintain change IV fluids due to hypernatremia Replace potassium and magnesium LYNDSEY ACOSTA DO Oct 29, 2017 11:54
[2017-10-29] MEDS ORDERED: TROUGH ORDER-PHARMACY XX NR (16:00)
[2017-10-29] MEDS: VANCOMYCIN 750 MG/NS 250 ML IVPB IV SCH ×2 (17:14)
[2017-10-29] MEDS: MONTELUKAST 10 MG (SINGULAIR) TAB PO SCH (21:19)
[2017-10-30] VITALS (36 sets, daily range): BP systolic 109–153; BP diastolic 69–89
[2017-10-30] MEDS: PIPERACILLIN SODIUM/TAZOBACTAM 4.5 GM in NS (IVPB) 100 ML IV SCH ×3 (00:45→17:06)
[2017-10-30] MEDS: DEXMEDETOMIDINE INJECTION 200 MCG in NS (IVPB) 50 ML IV SCH ×4 (01:49→20:08)
[2017-10-30] MEDS: morphine INJ 4 MG/ML 1 ML (VIAL/SYRINGE) IVP PRN ×4 (02:10→18:54)
[2017-10-30] MEDS: methylPREDNISolone 40 MG/ML (Solu-MEDROL) VIAL IV SCH ×4 (02:16→20:08)
[2017-10-30] MEDS: RT-ALBUTEROL/IPRATROPIUM 3 ML (DUONEB) VIAL INH SCH ×6 (02:22→21:43)
[2017-10-30 04:49] LABS: BASOPHILS % (AUTO) 0 % (0-10); EOSINOPHILS % (AUTO) 0 % (0-10); HEMATOCRIT 25 % (35-52); HEMOGLOBIN 7.9 G/DL (11.5-16.0); LYMPHOCYTES # (AUTO) 0.5 X 10^3 (1.0-4.0); LYMPHOCYTES % (AUTO) 10 % (12-44); MEAN CORPUSCULAR HEMOGLOBIN 31 PG (25-34); MEAN CORPUSCULAR HGB CONC 32 G/DL (32-36); MEAN CORPUSCULAR VOLUME 99 FL (80-99); MEAN PLATELET VOLUME 9.5 FL (7.4-10.4); MONOCYTES # (AUTO) 0.2 X 10^3 (0.0-1.0); MONOCYTES % (AUTO) 4 % (0-12); NEUTROPHILS # (AUTO) 4.5 X 10^3 (1.8-7.8); NEUTROPHILS % (AUTO) 86 % (42-75); PLATELET COUNT 406 10^3/uL (130-400); RED BLOOD COUNT 2.53 10^6/uL (4.35-5.85); RED CELL DISTRIBUTION WIDTH 14.6 % (10.0-14.5); WHITE BLOOD COUNT 5.2 10^3/uL (4.3-11.0)
[2017-10-30] MEDS: 1/2 NS IV SCH ×2 (04:57→15:03)
[2017-10-30] MEDS: POTASSIUM CHLORIDE IV SCH ×2 (04:57→15:03)
[2017-10-30] MEDS: VANCOMYCIN 750 MG/NS 250 ML IVPB IV SCH ×2 (05:01)
[2017-10-30 05:10] LABS: BUN/CREATININE RATIO 17; CALCIUM 6.4 MG/DL (8.5-10.1); CARBON DIOXIDE 24 MMOL/L (21-32); CHLORIDE 103 MMOL/L (98-107); CREATININE SERUM 0.48 MG/DL (0.60-1.30); GFR ESTIMATED > 60; GLUCOSE 131 MG/DL (70-105); MAGNESIUM 1.7 MG/DL (1.8-2.4); POTASSIUM 3.6 MMOL/L (3.6-5.0); SODIUM 140 MMOL/L (135-145)
[2017-10-30] MEDS: KCL 20 MEQ TAB (K-DUR) PO SCH (05:13)
[2017-10-30] MEDS: MAGNESIUM 1 GM/100 ML IVPB 100 ML IV SCH ×3 (05:13→07:57)
[2017-10-30] MEDS: POTASSIUM CL 10MEQ/50ML IVPB 50 ML IV SCH ×3 (05:13→07:57)
[2017-10-30] MEDS: RT-BUDESONIDE NEBS 0.5 MG/2ML (PULMICORT) AMP INH SCH ×2 (07:19→18:25)
[2017-10-30] MEDS: RT-ADVAIR HFA 115/21 MCG PER PUFF IH SCH ×2 (07:20→18:26)
--- NOTE | 2017-10-30 09:28 | Diagnostic Imaging Report ---
INDICATION: COPD, exacerbation. Comparison made to previous study from the prior day. FINDINGS: There are advanced chronic interstitial changes demonstrated within the lungs. No superimposed alveolar consolidation evident on today's examination. There is no large pleural collection or evidence of pneumothorax. Heart size and mediastinal contours appear unchanged. IMPRESSION: 1. Advanced background features of COPD without evidence of an acute superimposed cardiopulmonary process. Dictated by: Dictated on workstation # [id number]
[2017-10-30] MEDS: SALINE NASAL SPRAY (OCEAN) 45 ML BTL SCH ×4 (09:42→20:10)
[2017-10-30] MEDS: ENOXAPARIN 40 MG/0.4 ML (LOVENOX) SYR SC SCH (09:42)
[2017-10-30] MEDS: LORATADINE (CLARITIN) 10 MG TAB PO SCH (09:51)
[2017-10-30] MEDS: FLUTICASONE NASAL SPRAY (FLONASE) 16 GM BTL NS SCH (09:51)
--- NOTE | 2017-10-30 11:53 | Physical Therapy Evaluation ---
PT Evaluation-General Medical Diagnosis Admission Date Oct 26, 2017 at 17:50 Medical Diagnosis: COPD exacerbation Onset Date: Oct 27, 2017 Therapy Diagnosis Therapy Diagnosis: debility Height/Weight Height (Feet): 5 Height (Inches): 0.00 Weight (Pounds): 111 Weight (Ounces): 9.0 Precautions Precautions/Isolations: Fall Prevention, Standard Precautions Weight Bear Status Right Lower Extremity: Right Full Weight Bearing Left Lower Extremity: Left Full Weight Bearing Referral Physician: Billy Tubbs DO Reason for Referral: Evaluation/Treatment Medical History Pertinent Medical History: COPD, GERD Current History Pt transferred from outside facility with SOB and respiratory distress. Reviewed History: Yes Social History Current Living Status: Spouse Unable to obtain full history as Pt continues to be on Bi-Pap and is difficult to understand with mask in place. Prior/Core FIM Prior Level of Function Functional [place] Measure 0=Not Assessed/NA 4=Minimal Assistance 1=Total Assistance 5=Supervision or Setup 2=Maximal Assistance 6=Modified [place] 3=Moderate Assistance 7=Complete [place] unable to determine. Will assess further as anxiety decreases, Pt able to communicate better. PT Evaluation-Current Subjective Pt in bed. Resting comfortably upon arrival but quickly becomes anxious. Pt attempts to talk through mask but becomes SOB, further increasing anxiety. Pt agreeable to attempt to sit up with nursing and respiratory in room but after sitting up to long sit in bed, Pt declined to go further. Pt extremely anxious. O2 sats greater than 92% but Pt with increased respiratory rate, near panic at times. Pt requested PT remain in room, holding PT's hand for about 5 minutes post treatment to calm her. Objective Patient Orientation: Person Multiple lines, Bi-pap ROM/Strength ROM Upper Extremities See OT ROM Lower Extremities WFL for TFRs Strength Upper Extremities See OT Strength Lower Extremities Evaluate at a later date. Integumentary/Posture Integumentary See nurses' notes Transfers Functional [place] Measure 0=Not Assessed/NA 4=Minimal Assistance 1=Total Assistance 5=Supervision or Setup 2=Maximal Assistance 6=Modified [place] 3=Moderate Assistance 7=Complete [place] Scootin Supine to/from Sit: 6 (long-sit in bed; Pt declined EOB) Balance Sitting Static: Good Treatment Eval. Pt sat (long-sitting in bed without back support) for about 2' before returning to reclined in bed due to SOB. Pt in bed with all needs met, Pt calmed and agreeable to PT departure after treatment. Assessment/Needs Pt is a 72 y.o. female with COPD exacerbation, respiratory distress. Pt becomes very anxious with SOB although sats remained greater than 92% on BiPap. Pt self limits mobility due to this. Pt moved limbs (I) and moved to long-sitting without assist. Pt would benefit from skilled PT to improve (I) with functional mobility and improve functional activity tolerance. Rehab Potential: Fair PT Short Term Goals Short Term Goals Time Frame: Nov 06, 2017 Transfers (B,C,W/C) (FIM): 4 PT Director Medical Surgical Goals Skilled Nursing Goals PT Director Medical Surgical Goals Time Frame: Nov 20, 2017 Transfers (B,C,W/C) (FIM): 6 Gait (FIM): 5 Gait distance (FIM): 0=629-68 ft Distance: 50 Gait Level of Assist: 6 Gait Assistive Device: FWW PT goals established to improve (I) with functional mobility and decrease caregiver burden. PT Plan Problem List Problem List: Activity Tolerance, Functional Strength, Safety, Balance, Gait, Transfer, Bed Mobility Treatment/Plan Treatment Plan: Continue Plan of Care Treatment Plan: Bed Mobility, Education, Functional Activity Romana, Functional Strength, Gait, Safety, Therapeutic Exercise, Transfers Treatment Duration: Nov 20, 2017 Frequency: 6 times per week Estimated Hrs Per Day: .25 hour per day Patient and/or Family Agrees t: Yes Safety Risks/Education Teaching Recipient: Patient Teaching Methods: Discussion Response to Teaching: Reinforcement Needed Importance of increasing activity OOB Discharge Recommendations Barriers to Progress significant anxiety, SOB Time/GCodes Time In: 1017 Time Out: 1043 Total Billed Treatment Time: 26 Total Billed Treatment 1, EVHIGHC x 26' G Codes Necessary: No JULY BURTON DPT Oct 30, 2017 11:53
--- NOTE | 2017-10-30 14:09 | Occ Therapy Progress Note ---
Therapy Progress Note Attempted OT treatment at 1400. Pt in bed with family present. Pt is off of Bi- pap at this time and is on Vapotherm. Pt states "not today" when asked to participated in therapy. Pt states she may try to sit EOB tomorrow if she doesn' t get anxious. Will attempt therapy tomorrow. 1, visit, refused. CHELLE SOUSA OT Oct 30, 2017 14:09
--- NOTE | 2017-10-30 14:27 | Progress Note-Hospitalist ---
Standard Progress Note Progress Notes/Assess & Plan Date Seen 10/30/17 Diagnosis Assessment: Acute on chronic respiratory failure Acute bronchitis w/early right upper lobe infiltrate on CXR Frail status Chronic 24/7 O2 dependency Assess & Plan/Chief Complaint Patient is a 72-year-old white female with advanced pulmonary disease. She originally appeared as a transfer from [place] as it appeared she might be on a track requiring intubation.. She is now on day 4 of ICU status. Her family reports that she was able to go for about one hour today off of her BiPAP which would be an improvement. Physical exam: She is very thin. Lungs show distant breath sounds and shallow respirations. CV is regular. Abdomen is scaphoid. Legs show very thin ankles and feet. Impression: Acute on chronic respiratory failure. 2.evidence of slight improvement. 3.venous stasis edema controlled by pressure stockings Labs Laboratory Tests 10/29/17 04:22 10/30/17 04:15 QUINN BURNETT MD Oct 30, 2017 14:27
[2017-10-30] MEDS ORDERED: TROUGH ORDER-PHARMACY XX NR (16:00)
[2017-10-30] MEDS: VANCOMYCIN 1 GM/NS 250 ML IVPB IV SCH ×2 (17:15)
[2017-10-30] MEDS: MONTELUKAST 10 MG (SINGULAIR) TAB PO SCH (20:10)
[2017-10-31] VITALS (29 sets, daily range): BP systolic 97–150; BP diastolic 58–94
[2017-10-31] MEDS: PIPERACILLIN SODIUM/TAZOBACTAM 4.5 GM in NS (IVPB) 100 ML IV SCH ×3 (00:20→16:17)
[2017-10-31] MEDS: RT-ALBUTEROL/IPRATROPIUM 3 ML (DUONEB) VIAL INH SCH ×6 (01:21→23:46)
[2017-10-31] MEDS: DEXMEDETOMIDINE INJECTION 200 MCG in NS (IVPB) 50 ML IV SCH ×5 (01:35→21:43)
[2017-10-31] MEDS: morphine INJ 4 MG/ML 1 ML (VIAL/SYRINGE) IVP PRN ×6 (01:44→20:31)
[2017-10-31] MEDS: POTASSIUM CHLORIDE IV SCH (02:06)
[2017-10-31] MEDS: 1/2 NS IV SCH (02:06)
[2017-10-31] MEDS: methylPREDNISolone 40 MG/ML (Solu-MEDROL) VIAL IV SCH ×4 (02:11→20:30)
[2017-10-31] MEDS: VANCOMYCIN 1 GM/NS 250 ML IVPB IV SCH ×2 (05:53)
[2017-10-31 06:21] LABS: BUN/CREATININE RATIO 13; CALCIUM 6.6 MG/DL (8.5-10.1); CARBON DIOXIDE 26 MMOL/L (21-32); CHLORIDE 102 MMOL/L (98-107); CREATININE SERUM 0.46 MG/DL (0.60-1.30); GFR ESTIMATED > 60; GLUCOSE 127 MG/DL (70-105); POTASSIUM 3.6 MMOL/L (3.6-5.0); SODIUM 141 MMOL/L (135-145)
[2017-10-31] MEDS: KCL 20 MEQ TAB (K-DUR) PO SCH (06:31)
[2017-10-31] MEDS: POTASSIUM CL 10MEQ/50ML IVPB 50 ML IV SCH (06:31)
[2017-10-31] MEDS: MAGNESIUM 1 GM/100 ML IVPB 100 ML IV SCH (06:31)
[2017-10-31] MEDS: RT-BUDESONIDE NEBS 0.5 MG/2ML (PULMICORT) AMP INH SCH ×2 (06:42→18:54)
--- NOTE | 2017-10-31 07:02 | Pulmonary Progress Note ---
Subjective Time Seen by Provider: 06:57 Subjective/Events-last exam PT is very weak and still requiring BiPAP. Exam Exam Vital Signs Date Time Temp Pulse Resp B/P (MAP) Pulse Ox O2 Delivery O2 Flow Rate FiO2 10/31/17 06:36 73 15 99 30.00 10/31/17 06:00 74 20 141/84 (103) 99 NIV Bilevel 30.00 10/31/17 05:00 78 11 147/83 (104) 98 NIV Bilevel 30.00 10/31/17 04:40 70 13 98 30.00 10/31/17 04:00 95 NIV Bilevel 30.00 10/31/17 04:00 87 28 135/86 (102) 98 NIV Bilevel 30.00 10/31/17 04:00 96.0 10/31/17 03:00 91 19 135/88 (104) 98 NIV Bilevel 30.00 10/31/17 02:00 90 17 126/73 (90) 97 NIV Bilevel 30.00 10/31/17 01:21 70 13 98 30.00 10/31/17 01:00 73 12 141/84 (103) 98 NIV Bilevel 30.00 10/31/17 01:00 97.0 10/31/17 01:00 73 10/31/17 00:00 87 14 138/83 (101) 98 NIV Bilevel 30.00 10/31/17 00:00 95 NIV Bilevel 30.00 10/30/17 23:57 75 12 98 30.00 10/30/17 23:00 80 12 138/86 (103) 97 NIV Bilevel 30.00 10/30/17 22:00 87 12 130/84 (99) 97 NIV Bilevel 30.00 10/30/17 21:43 76 14 98 30.00 10/30/17 21:00 84 22 138/88 (105) 98 NIV Bilevel 30.00 10/30/17 20:00 95 NIV Bilevel 30.00 10/30/17 20:00 79 13 130/85 (100) 97 NIV Bilevel 30.00 10/30/17 19:32 92 14 97 30.00 10/30/17 19:00 96.9 NIV Bilevel 30.00 10/30/17 19:00 89 10/30/17 19:00 89 16 128/75 (92) 96 NIV Bilevel 30.00 10/30/17 18:26 80 28 98 30.00 10/30/17 18:00 76 13 129/74 (92) 98 NIV Bilevel 30.00 10/30/17 17:00 80 19 126/73 (90) 96 NIV Bilevel 30.00 10/30/17 16:40 97.0 10/30/17 16:39 95 NIV Bilevel 30.00 10/30/17 16:33 87 25 95 30.00 10/30/17 16:00 81 18 117/76 (90) 97 NIV Bilevel 30.00 10/30/17 15:00 95 22 111/69 (83) 98 NIV Bilevel 30.00 10/30/17 14:26 81 26 96 30.00 10/30/17 14:23 95 NIV Bilevel 30.00 10/30/17 14:00 86 20 117/89 (98) 91 Vapotherm 50.00 10/30/17 13:00 90 16 136/82 (100) 100 Vapotherm 50.00 10/30/17 13:00 90 10/30/17 12:59 95 Vapotherm 70.00 50 10/30/17 12:00 93 26 120/81 (94) 98 Vapotherm 50.00 10/30/17 11:57 Vapotherm 50.00 10/30/17 11:55 98 Vapotherm 30.00 50 10/30/17 11:00 84 16 125/74 (91) 99 NIV Bilevel 30.00 10/30/17 10:26 86 27 96 30.00 10/30/17 10:00 76 13 117/74 (88) 97 NIV Bilevel 30.00 10/30/17 09:02 82 14 99 30.00 10/30/17 09:00 82 11 124/74 (91) 99 NIV Bilevel 30.00 10/30/17 08:00 93 16 109/77 (88) 98 NIV Bilevel 30.00 10/30/17 08:00 95 NIV Bilevel 30.00 10/30/17 07:30 97 NIV Bilevel 30 10/30/17 07:19 78 15 97 30.00 10/30/17 07:00 70 10/30/17 07:00 70 13 134/84 (101) 99 NIV Bilevel 30.00 I & O 1/2/18 07:00 Intake Total 826 ml Output Total 2960 ml Balance -2134 ml General Appearance: WD/WN, Chronically ill, Cachetic, Moderate Distress, Thin HEENT: PERRL/EOMI, Normal ENT Inspection, Pharynx Normal Neck: Full Range of Motion, Normal Inspection, Non Tender, Supple, Carotid Bruit Respiratory: Chest Non Tender, No Accessory Muscle Use, No Respiratory Distress , Decreased Breath Sounds Cardiovascular: Regular Rate, Rhythm, No Edema, No Gallop, No JVD, No Murmur, Normal Peripheral Pulses Capillary Refill: Less Than 3 Seconds Extremity: Normal Capillary Refill, Normal Inspection, Normal Range of Motion, Non Tender, No Calf Tenderness, No Pedal Edema Neurologic/Psychiatric: Alert, Oriented x3, No Motor/Sensory Deficits, Depressed Affect Skin: Normal Color, Warm/Dry Lymphatic: No Adenopathy Results Lab Laboratory Tests 10/30/17 04:15 10/31/17 05:35 Assessment/Plan Assessment/Plan Acute Respiratory Distress - Precedex, and morphine D/C Ativan and Fentanyl -BiPAP -Titrate Fi02 COPDAE BiPAP to 15/6 -SVNs, advair -SOlumedrol Debility/weakness -PT/ot -PT will be too weak for living at home. UTI -Zosyn Allergic rhinitis -singulair, claritin, flonase PT is very weak and gets very anxious off BiPAP. She is only requiring 30% oxygen. If she is intubated she is going to be very hard to wean. I recommend comfort care/hospice. If pt is intubated will start to arrange for [facility] transfer. I spent 45min discussing with patient, Alvaro (son), and medical staff patients current medical condition and prognosis. Alvaro is planning on talking with Hospice nurse today. His brother lives in the area. 45min Clinical Quality Measures DVT/VTE Risk/Contraindication: Risk Factor Score Per Nursin RFS Level Per Nursing on Admit: 4+=Very High PINEDA ROBB DO Oct 31, 2017 07:01
--- NOTE | 2017-10-31 08:04 | Diagnostic Imaging Report ---
INDICATION: COPD exacerbation. EXAMINATION: Chest 10/31/2017. COMPARISON: 10/30/2017. FINDINGS: Lungs are hyperinflated. Chronic changes seen throughout both lungs. There may be very small left effusion. The heart is stable from previous. Pulmonary vasculature is unremarkable. IMPRESSION: 1. Chronic changes described. Small left effusion suspected. Dictated by: Dictated on workstation # [id number]
[2017-10-31] MEDS ORDERED: FUROSEMIDE 40 MG/4 ML INJ (LASIX) IVP NR (08:30)
[2017-10-31] MEDS: ENOXAPARIN 40 MG/0.4 ML (LOVENOX) SYR SC SCH (08:41)
[2017-10-31] MEDS: FLUTICASONE NASAL SPRAY (FLONASE) 16 GM BTL NS SCH (08:42)
[2017-10-31] MEDS: LORATADINE (CLARITIN) 10 MG TAB PO SCH (08:42)
[2017-10-31] MEDS: SALINE NASAL SPRAY (OCEAN) 45 ML BTL SCH ×4 (08:42→20:31)
--- NOTE | 2017-10-31 09:43 | Occupational Therapy Eval ---
OT Evaluation-General/PLF Medical Diagnosis Admission Date Oct 26, 2017 at 17:50 Medical Diagnosis: COPD exacerbation Onset Date: Oct 27, 2017 Therapy Diagnosis Therapy Diagnosis: Decreased ADL skills Height/Weight Height (Feet): 5 Height (Inches): 0.00 Weight (Pounds): 108 Weight (Ounces): 5.0 Precautions Precautions/Isolations: Fall Prevention, Standard Precautions Safety Interventions: None Weight Bear Status Weight Bearing Restriction: Weight Bearing/Tolerated Referral Physician: Billy Tubbs DO Referral Reason: Activity Tolerance, Self Care, Evaluation/Treatment, Strengthening/ROM Medical History Pertinent Medical History: COPD, GERD Additional Medical History Emphysema, tachycardia, osteoporosis, anxiety Current History Pt. having severe anxiety about being able to breathe. Family scheduled to talk with hospice. Reviewed History: Yes Social History Home: Single Level Current Living Status: Spouse Entry Into Home: Level Entry ADL-Prior Level of Function ADL PLOF Comments Pt. states that she was able to dress herself, but had "help" to bathe herself. As OT asks pt. questions, pt. is having difficulty breathing and is very anxious. Not all history able to be obtained at this time. No family present. DME/Equipment: Bath Chair, Shower DME/Equipment Comments Pt. is able to indicate that she walks with a cane. Does not state other equipment, as she is concentrating during OT session on not having anxiety attack. Nursing present during treatment. Pt. is given medicine after treatment for anxiety/pain. OT Current Status Subjective Pt. does not state a pain level, but asks for medicine. Nursing gives her medicine after working with OT. Pt requests for OT to stay with her until her anxiety is under control. Pt. reports concern about having anxiety attack during treatment. Requires constant encouragement to participate. Appearance Pt. is in bed. Pt. on vapotherm. Alert but very anxious. Mental Status/Objective Patient Orientation: Person Attachments: IV, Oxygen Current Upper Extremity ROM Pt. is unable to participate in UE assessment due to anxiety at time of evaluation. Upper Extremity Strength NT ADL-Treatment Functional [place] Measure 0=Not Assessed/NA 4=Minimal Assistance 1=Total Assistance 5=Supervision or Setup 2=Maximal Assistance 6=Modified [place] 3=Moderate Assistance 7=Complete IndependenceIRFPAI Quality Coding Scale 6 Independent with activity with or without an assistive device 5 Patient requires set up or clean up by helper. Patient completes activity by themselves 4 Supervision or touching assist (CGA). [place] provide cues , steadying assist 3 The helper provides less than half the effort to complete the activity 2 The helper provides more than half the effort to complete the activity 1 Dependent. The helper does all the effort to complete an activity 7 Patient refused to complete or attempt activity 9 The patient did not perform the activity before the current illness or injury 88 Not attempted due to Medical conditions or safety concerns Lower Body Dressing (FIM): 1 (OT donned pt's socks in bed.) Toileting (FIM): 1 (Pt. has catheter.) Transfers (B, C, W/C) (FIM): 2 (Pt. requires max assist to transfer supine-sit , sit-stand, and sit-supine. This is mainly due to anxiety and her fear of not having enough assistance.) Other Treatments Pt. required encouragement from nursing and OT to participate in evaluation. Pt. does agree to sit on side of bed, but refused all attempts at getting her to sit in chair by bed. Pt. very anxious. Requires constant rest breaks and increased time to participate as she states that she is very anxious. OT holds pt's hand on side of bed so that pt. can calm self down. Sits on side of bed approximately 10 minutes before agreeing to stand. Stand but only with promise of using two people. However, pt. is able to stand with assist of one person. OT encourages more movement. OT encourages pt. to take steps or to even transfer to chair. Pt. states, "not today, not today." Transfers back to bed with max x 2. All needs met in bed. Education OT Patient Education: Correct positioning, Modified ADL techniques, Progress toward Goal/Update tx plan, Purpose of tx/functional activities, Reviewed precautions, Rehab process, Transfer techniques Teaching Recipient: Patient Teaching Methods: Demonstration, Discussion Response to Teaching: Verbalize Understanding, Return Demonstration OT Short Term Goals Short Term Goals Time Frame: Nov 07, 2017 Eating(FIM): 4 Grooming(FIM): 3 Upper Body Dressing(FIM): 3 Transfers (B,C,W/C) (FIM): 4 Additional Short Term Goals: 1-Demonstrate ADL Tasks, 2-Verbalize Understanding , 3-ImproveStrength/Romana 1=Demonstrate adherence to instructed precautions during ADL tasks. 2=Patient will verbalize/demonstrate understanding of assistive devices/ modifications for ADL. 3=Patient will improve strength/tolerance for activity to enable patient to perform ADL's. OT Usp Goals Usp Goals Time Frame: Nov 14, 2017 Eating (FIM): 5 Grooming(FIM): 4 Upper Body Dressing(FIM): 4 Lower Body Dressing(FIM): 3 Toileting(FIM): 3 Transfers (B,C,W/C) (FIM): 4 Toilet/Commode Transfer(FIM): 4 Additional Goals: 1-Demonstrate ADL Tasks, 2-Verbalize Understanding, 3- ImproveStrength/Romana 1=Demonstrate adherence to instructed precautions during ADL tasks. 2=Patient will verbalize/demonstrate understanding of assistive devices/ modifications for ADL. 3=Patient will improve strength/tolerance for activity to enable patient to perform ADL's. OT Education/Plan Problem List/Assessment Assessment: Decreased Activ Tolerance, Decreased UE Strength, Dependent Transfers, Impaired Bed Mobility, Impaired Funct Balance, Impaired I ADL's, Impaired Self-Care Skills, Restricted Funct UE ROM Discharge Recommendations Plan/Recommendations: Continue POC Therapy D/C Recommendations: 24 hr Supervision Comment Unsure of discharge needs or location at this time. Treatment Plan/Plan of Care Treatment,Training & Education: Yes Patient would benefit from OT for education, treatment and training to promote independence in ADL's, mobility, safety and/or upper extremity function for ADL' s. Plan of Care: ADL Retraining, Caregiver Training, Functional Mobility, UE Funct Exercise/Act Treatment Duration: Nov 14, 2017 Frequency: 5 times per week Estimated Hrs Per Day: .25 hour per day Agreement: Yes Rehab Potential: Fair Time/GCodes Start Time: 08:30 Stop Time: 09:10 Total Time Billed (hr/min): 40 Billed Treatment Time 1, EVH x 15minutes, FA x 25minutes VIDA QUISPE OT Oct 31, 2017 09:43
--- NOTE | 2017-10-31 09:54 | Physical Therapy Progress Note ---
Therapy Progress Note Patient had just completed OT session and states she is unable to participate with PT at this time. PT will attempt later this a.m. 1 visit SHIRLEY CORTÉS PT Oct 31, 2017 09:54
[2017-10-31] MEDS: RT-ADVAIR HFA 115/21 MCG PER PUFF IH SCH ×2 (10:58→18:54)
--- NOTE | 2017-10-31 11:39 | Physical Therapy Daily Note ---
PT Daily Note-Current Subjective Patient reluctantly agrees to PT. Pain Numeric Pain Scale: 5-Moderate Pain Location: Medial, Upper, Lower Location Body Site: Back Pain Description: Ache Appearance vapotherm 40/25 SAO2 90% Mental Status Patient Orientation: Person, Time, Situation Attachments: Oxygen, Samuel Catheter, IV Transfers Functional [place] Measure 0=Not Assessed/NA 4=Minimal Assistance 1=Total Assistance 5=Supervision or Setup 2=Maximal Assistance 6=Modified [place] 3=Moderate Assistance 7=Complete IndependenceIRFPAI Quality Coding Scale 6 Independent with activity with or without an assistive device 5 Patient requires set up or clean up by helper. Patient completes activity by themselves 4 Supervision or touching assist (CGA). [place] provide cues , steadying assist 3 The helper provides less than half the effort to complete the activity 2 The helper provides more than half the effort to complete the activity 1 Dependent. The helper does all the effort to complete an activity 7 Patient refused to complete or attempt activity 9 The patient did not perform the activity before the current illness or injury 88 Not attempted due to Medical conditions or safety concerns Transfers (B, C, W/C) (FIM): 2 Scootin Rollin Supine to/from Sit: 2 Sit to/from Stand: 2 Bed to/from Chair: 2 max assist with all mobility and SPT transfer bed to chair. Weight Bearing Right Lower Extremity: Right Full Weight Bearing Left Lower Extremity: Left Full Weight Bearing Assessment Patient is up in recliner and was issued Morphine for air hunger. Patient appears very anxious with any movement. PT will increase activity as tolerated by patient. PT Short Term Goals Short Term Goals Time Frame: Nov 06, 2017 Transfers (B,C,W/C) (FIM): 4 PT Fci Goals Utility Person Goals PT Utility Person Goals Time Frame: Nov 20, 2017 Transfers (B,C,W/C) (FIM): 6 Gait (FIM): 5 Gait distance (FIM): 2=938-70 ft Distance: 50 Gait Level of Assist: 6 Gait Assistive Device: FWW PT Plan Treatment/Plan Treatment Plan: Continue Plan of Care Treatment Plan: Bed Mobility, Education, Functional Activity Romana, Functional Strength, Gait, Safety, Therapeutic Exercise, Transfers Treatment Duration: Nov 20, 2017 Frequency: 6 times per week Estimated Hrs Per Day: .25 hour per day Patient and/or Family Agrees t: Yes Time/GCodes Time In: 1110 Time Out: 1125 Total Billed Treatment Time: 15 Total Billed Treatment 1 visit FA 15 min SHIRLEY CORTÉS PT Oct 31, 2017 11:39
[2017-10-31] MEDS ORDERED: TROUGH ORDER-PHARMACY XX NR (16:00)
[2017-10-31] MEDS: MONTELUKAST 10 MG (SINGULAIR) TAB PO SCH (20:31)
[2017-11-01] VITALS (30 sets, daily range): BP systolic 103–149; BP diastolic 60–97
[2017-11-01] MEDS: PIPERACILLIN SODIUM/TAZOBACTAM 4.5 GM in NS (IVPB) 100 ML IV SCH ×3 (01:13→17:27)
[2017-11-01] MEDS: POTASSIUM CHLORIDE IV SCH (01:13)
[2017-11-01] MEDS: 1/2 NS IV SCH (01:13)
[2017-11-01] MEDS: morphine INJ 4 MG/ML 1 ML (VIAL/SYRINGE) IVP PRN ×4 (01:13→20:12)
[2017-11-01] MEDS: methylPREDNISolone 40 MG/ML (Solu-MEDROL) VIAL IV SCH ×4 (02:28→21:36)
[2017-11-01] MEDS: DEXMEDETOMIDINE INJECTION 200 MCG in NS (IVPB) 50 ML IV SCH ×5 (02:29→23:34)
[2017-11-01] MEDS: RT-ALBUTEROL/IPRATROPIUM 3 ML (DUONEB) VIAL INH SCH ×6 (02:44→21:54)
[2017-11-01 05:37] LABS: BUN/CREATININE RATIO 14; CALCIUM 6.8 MG/DL (8.5-10.1); CARBON DIOXIDE 32 MMOL/L (21-32); CHLORIDE 97 MMOL/L (98-107); CREATININE SERUM 0.43 MG/DL (0.60-1.30); GFR ESTIMATED > 60; GLUCOSE 136 MG/DL (70-105); MAGNESIUM 1.9 MG/DL (1.8-2.4); SODIUM 142 MMOL/L (135-145)
[2017-11-01] MEDS: MAGNESIUM 1 GM/100 ML IVPB 100 ML IV SCH (05:57)
[2017-11-01] MEDS: KCL 20 MEQ TAB (K-DUR) PO SCH (05:57)
[2017-11-01] MEDS: POTASSIUM CL 10MEQ/50ML IVPB 50 ML IV SCH ×5 (05:57→11:27)
[2017-11-01] MEDS: RT-BUDESONIDE NEBS 0.5 MG/2ML (PULMICORT) AMP INH SCH ×2 (06:10→18:29)
[2017-11-01] MEDS: RT-ADVAIR HFA 115/21 MCG PER PUFF IH SCH ×2 (06:10→18:29)
--- NOTE | 2017-11-01 06:22 | Pulmonary Progress Note ---
Subjective Time Seen by Provider: 06:24 Subjective/Events-last exam Pt did well off BiPAP last night. Exam Exam Vital Signs Date Time Temp Pulse Resp B/P (MAP) Pulse Ox O2 Delivery O2 Flow Rate FiO2 11/01/17 06:10 89 17 95 30.00 11/01/17 06:00 96 20 122/72 (89) 94 NIV Bilevel 35.00 11/01/17 05:00 86 16 127/71 (89) 94 NIV Bilevel 35.00 11/01/17 04:29 86 15 95 30.00 11/01/17 04:00 91 18 128/71 (90) 96 NIV Bilevel 35.00 11/01/17 03:50 97 NIV Bilevel 30.00 11/01/17 03:49 97.6 11/01/17 03:00 86 15 116/62 (80) 95 NIV Bilevel 35.00 11/01/17 02:44 82 19 97 30.00 11/01/17 02:00 82 13 122/74 (90) 96 NIV Bilevel 35.00 11/01/17 01:00 85 14 122/72 (89) 95 NIV Bilevel 35.00 11/01/17 01:00 94 11/01/17 00:00 86 19 118/77 (91) 96 NIV Bilevel 35.00 10/31/17 23:50 94 NIV Bilevel 30.00 10/31/17 23:50 98.9 10/31/17 23:46 74 31 95 30.00 10/31/17 23:00 76 11 144/79 (100) 94 NIV Bilevel 35.00 10/31/17 22:00 75 13 129/69 (89) 94 NIV Bilevel 35.00 10/31/17 21:00 77 12 123/67 (85) 94 NIV Bilevel 35.00 10/31/17 20:15 94 NIV Bilevel 30.00 10/31/17 20:14 83 14 94 30.00 10/31/17 20:00 97.8 106 32 109/64 (79) 95 NIV Bilevel 35.00 10/31/17 19:00 86 10/31/17 19:00 86 23 116/63 (80) NIV Bilevel 35.00 10/31/17 18:54 94 Vapotherm 20.00 35 10/31/17 18:54 94 Vapotherm 20.00 35 10/31/17 18:00 84 15 117/62 (80) 94 NIV Bilevel 35.00 10/31/17 17:00 87 14 115/63 (80) 95 NIV Bilevel 35.00 10/31/17 16:00 89 20 106/58 (74) 96 NIV Bilevel 30.00 10/31/17 16:00 100 Vapotherm 35.00 60 10/31/17 16:00 97.8 10/31/17 15:00 86 20 115/70 (85) 95 NIV Bilevel 30.00 10/31/17 14:57 99 Vapotherm 20.00 30 10/31/17 14:00 92 23 130/93 (105) 98 NIV Bilevel 30.00 10/31/17 13:00 84 14 122/72 (89) 98 NIV Bilevel 30.00 10/31/17 13:00 84 10/31/17 12:00 100 Vapotherm 30.00 60 10/31/17 12:00 98.6 10/31/17 12:00 92 18 110/64 (79) 97 NIV Bilevel 30.00 10/31/17 11:02 100 Vapotherm 25.00 40 10/31/17 11:00 86 22 119/66 (83) 99 NIV Bilevel 30.00 10/31/17 10:00 87 20 97/67 (77) 98 NIV Bilevel 30.00 10/31/17 09:00 81 25 135/80 (98) 99 NIV Bilevel 30.00 10/31/17 08:35 98 Vapotherm 30.00 50 10/31/17 08:00 90 21 146/94 (111) 100 NIV Bilevel 30.00 10/31/17 08:00 100 Vapotherm 30.00 60 10/31/17 07:00 69 10/31/17 07:00 98.9 10/31/17 07:00 80 20 150/83 (105) 98 NIV Bilevel 30.00 10/31/17 06:36 73 15 99 30.00 I & O 11/01/17 07:00 Intake Total 1914 ml Output Total 4030 ml Balance -2116 ml General Appearance: WD/WN, Chronically ill, Cachetic, Moderate Distress, Thin HEENT: PERRL/EOMI, Normal ENT Inspection, Pharynx Normal Neck: Full Range of Motion, Normal Inspection, Non Tender, Supple, Carotid Bruit Respiratory: Chest Non Tender, No Accessory Muscle Use, No Respiratory Distress , Decreased Breath Sounds Cardiovascular: Regular Rate, Rhythm, No Edema, No Gallop, No JVD, No Murmur, Normal Peripheral Pulses Capillary Refill: Less Than 3 Seconds Extremity: Normal Capillary Refill, Normal Inspection, Normal Range of Motion, Non Tender, No Calf Tenderness, No Pedal Edema Neurologic/Psychiatric: Alert, Oriented x3, No Motor/Sensory Deficits, Depressed Affect Skin: Normal Color, Warm/Dry Lymphatic: No Adenopathy Results Lab Laboratory Tests 10/31/17 05:35 11/01/17 04:55 Assessment/Plan Assessment/Plan Acute Respiratory Distress - Precedex, and morphine D/C Ativan and Fentanyl -BiPAP -Titrate Fi02 COPDAE BiPAP to 15/6 -SVNs, advair -SOlumedrol Anxiety -start Risperdal Debility/weakness -PT/ot -PT will be too weak for living at home. UTI -Zosyn Allergic rhinitis -singulair, claritin, flonase 233 Clinical Quality Measures DVT/VTE Risk/Contraindication: Risk Factor Score Per Nursin RFS Level Per Nursing on Admit: 4+=Very High PINEDA ROBB DO Nov 01, 2017 06:22
[2017-11-01 06:59] LABS: BASOPHILS % (AUTO) 0 % (0-10); EOSINOPHILS % (AUTO) 0 % (0-10); HEMATOCRIT 27 % (35-52); HEMOGLOBIN 8.7 G/DL (11.5-16.0); LYMPHOCYTES # (AUTO) 0.5 X 10^3 (1.0-4.0); LYMPHOCYTES % (AUTO) 6 % (12-44); MEAN CORPUSCULAR HEMOGLOBIN 31 PG (25-34); MEAN CORPUSCULAR HGB CONC 32 G/DL (32-36); MEAN CORPUSCULAR VOLUME 97 FL (80-99); MEAN PLATELET VOLUME 9.1 FL (7.4-10.4); MONOCYTES # (AUTO) 0.4 X 10^3 (0.0-1.0); MONOCYTES % (AUTO) 5 % (0-12); NEUTROPHILS # (AUTO) 7.9 X 10^3 (1.8-7.8); NEUTROPHILS % (AUTO) 90 % (42-75); PLATELET COUNT 479 10^3/uL (130-400); RED BLOOD COUNT 2.79 10^6/uL (4.35-5.85); RED CELL DISTRIBUTION WIDTH 14.2 % (10.0-14.5); WHITE BLOOD COUNT 8.8 10^3/uL (4.3-11.0)
[2017-11-01 07:21] LABS: ANISOCYTOSIS SLIGHT; BAND NEUTROPHILS 1 %; BASOPHILS % (MANUAL) 0 %; EOSINOPHILS % (MANUAL) 0 %; LYMPHOCYTES % (MANUAL) 2 %; MONOCYTES % (MANUAL) 6 %; NEUTROPHILS % (MANUAL) 91 %
[2017-11-01] MEDS: FLUTICASONE NASAL SPRAY (FLONASE) 16 GM BTL NS SCH (08:37)
--- NOTE | 2017-11-01 08:55 | Diagnostic Imaging Report ---
INDICATION: COPD. COMPARISON: 10/31/2017. FINDINGS: Biapical pleural/parenchymal scarring and cyst formation are stable. Air trapping, COPD, and prominence of the basilar interstitial lung markings are all unchanged. No focal consolidation, failure, effusion, or pneumothorax. Blunting of the left costophrenic angle is unchanged. IMPRESSION: Extensive chronic findings, stable from the prior exam. Probable small left effusion, stable. No new abnormality. Dictated by: Dictated on workstation # [id number]
[2017-11-01] MEDS: SALINE NASAL SPRAY (OCEAN) 45 ML BTL SCH ×4 (09:39→21:44)
[2017-11-01] MEDS: ENOXAPARIN 40 MG/0.4 ML (LOVENOX) SYR SC SCH (09:39)
[2017-11-01] MEDS: risperiDONE 0.25 MG (RisperDAL) TAB PO SCH ×2 (09:39→21:40)
[2017-11-01] MEDS: LORATADINE (CLARITIN) 10 MG TAB PO SCH (09:39)
--- NOTE | 2017-11-01 10:22 | Progress Note-Hospitalist ---
Progress Note HPI/CC on Admission CC: Transfer from [facility] due to respiratory failure HPI: This is a 72 [address] Romo who presented to [facility] following exacerbation of COPD and was tranferred to higher level of care at [facility]. case management director: Pt has done poorly off biPAP Patient Interview: Pt was resting prior to interview. Pt tried very hard to discuss something with me that was inaudible through her mask. The RN was asked to help and the pt stated that she wants to wear her own compression stockings, not the ones she has on. Pt was informed that we can contact someone to bring her stockings. Physical exam stable. Scribed by Mariela Vaca under direct supervision of Dr. Lyndsey Acosta. Progress Notes/Assess & Plan Date Seen 11/01/17 Time Seen by Provider: 09:45 Admission Dx/Process Assessment: Acute on chronic respiratory failure Acute bronchitis w/early right upper lobe infiltrate on CXR Frail status Chronic 24/7 O2 dependency Diagonsis/Assessment & Plan Patient placed on Vapotherm and tachypnea is about the same on or off the biPAP Patient appears to be very end-stage and if intubation is required she will remain on ventilator long-term and considering how frail of the status she is I do not believe that would be beneficial for her and all considering futility and poor quality of life if that should occur. Py appears to be a [facility] candidate due to tenuous respiratory status IV antibiotics maintain for infiltrate on chest x-ray of Zosyn IV steroids maintained Pt sitting and watching TV and appears comfortable No fever, vital signs stable, pleasant, Vapotherm on, frail, pale, chronically ill, very debilitated Regular rate and rhythm Clear to auscultation bilaterally but very diminished all dewitt No edema Laboratory Tests 11/01/17 04:55 11/01/17 06:48 Assessment: Acute on chronic respiratory failure and unable to wean off aggressive respiratory support now on Vapotherm but consulted [facility] for transfer due to bed bug exterminator issues expected Acute bronchitis w/early right upper lobe infiltrate on CXR maintained on abx Zosyn Frail status and does not appear to be a candidate for long-term intubation due to likelihood of never being able to be extubated and poor quality of life Chronic 24/7 O2 dependency Hypernatremia improved Hypokalemia supplementing Hypomagnesemia Plan: Monitor pt May need intubation but if that should occur likely will be unable to extubate and she will need a long-term vent facility and it doesn't appear that her quality of life will improve in that type of situation Poor prognosis if requires intubation due to severe COPD Appreciate Dr Tubbs's help Maintain change IV fluids due to hypernatremia Replace potassium and magnesium LYNDSEY ACOSTA DO Nov 01, 2017 10:22
--- NOTE | 2017-11-01 11:02 | Physical Therapy Daily Note ---
PT Daily Note-Current Subjective Pt laying Supine in bed upon arrival. PT & OT to co-treat due to pt's fatigue and weakness. Pain Comment: Pt reports pain but doesn't rate or tell location. Mental Status Patient Orientation: Person, Place Attachments: Oxygen, Samuel Catheter, IV Transfers Functional [place] Measure 0=Not Assessed/NA 4=Minimal Assistance 1=Total Assistance 5=Supervision or Setup 2=Maximal Assistance 6=Modified [place] 3=Moderate Assistance 7=Complete IndependenceIRFPAI Quality Coding Scale 6 Independent with activity with or without an assistive device 5 Patient requires set up or clean up by helper. Patient completes activity by themselves 4 Supervision or touching assist (CGA). [place] provide cues , steadying assist 3 The helper provides less than half the effort to complete the activity 2 The helper provides more than half the effort to complete the activity 1 Dependent. The helper does all the effort to complete an activity 7 Patient refused to complete or attempt activity 9 The patient did not perform the activity before the current illness or injury 88 Not attempted due to Medical conditions or safety concerns Scootin Supine to/from Sit: 3 Sit to/from Stand: 2 Weight Bearing Right Lower Extremity: Right Full Weight Bearing Left Lower Extremity: Left Full Weight Bearing Treatments Pt transfers from Supine to EOB at Mod A and EOB to standing for SPT to recliner at Max A. PT & OT co-treat due to anxiety level and SOB. PT focused on calming techniques and pt's O2 line and monitors while OT focused on breathing techniques and transfers. Pt monitored O2 level during transfer. Nurse was called due to pt's report of increased SOB. Nurse called RT to increase Vapotherm and reconnected Pulse Ox. Pt resting in chair with OT attending at end of tx with all needs met. Assessment Current Status: Fair Progress Pt struggles with anxiety levels and SOB during tx. PT Short Term Goals Short Term Goals Time Frame: Nov 06, 2017 Transfers (B,C,W/C) (FIM): 4 PT Alf Goals Alf Goals PT Room Service [place] Goals Time Frame: Nov 20, 2017 Transfers (B,C,W/C) (FIM): 6 Gait (FIM): 5 Gait distance (FIM): 3=315-81 ft Distance: 50 Gait Level of Assist: 6 Gait Assistive Device: FWW PT Plan Problem List Problem List: Activity Tolerance, Functional Strength, Safety, Balance, Gait, Transfer, Bed Mobility Treatment/Plan Treatment Plan: Continue Plan of Care Treatment Plan: Bed Mobility, Education, Functional Activity Romana, Functional Strength, Gait, Safety, Therapeutic Exercise, Transfers Treatment Duration: Nov 20, 2017 Frequency: 6 times per week Estimated Hrs Per Day: .25 hour per day Patient and/or Family Agrees t: Yes Safety Risks/Education Patient Education: Transfer Techniques, Correct Positioning, Safety Issues Teaching Recipient: Patient Teaching Methods: Discussion Response to Teaching: Verbalize Understanding Time/GCodes Time In: 830 Time Out: 845 Total Billed Treatment Time: 15 Total Billed Treatment 1, FA (15m) ANTONIO MONSALVE PTA Nov 01, 2017 11:02
--- NOTE | 2017-11-01 12:09 | Occupational Ther Daily Note ---
OT Current Status-Daily Note Subjective "I will get up, but I don't want to." Appearance Pt. in bed waiting for morphine. Does not report pain, but reports being anxious and having trouble breathing. PT waiting to see pt. as well. Spoke with nursing. Nursing okay for pt. to be up out of bed. States that RT has been in room multiple times that morning. Mental Status/Objective Patient Orientation: Person, Place, Time, Situation Functional [place] Measure 0=Not Assessed/NA 4=Minimal Assistance 1=Total Assistance 5=Supervision or Setup 2=Maximal Assistance 6=Modified [place] 3=Moderate Assistance 7=Complete [place] Attachments: IV, Oxygen ADL-Treatment Transfers (B, C, W/C) (FIM): 2 (Please see note.) Other Treatment Pt. in bed. Very anxious. Agrees to get up. OT/PT co-treat due to level of anxiety, and need for skilled treatment due to fatigue and shortness of breath. Pt. requires mod assist for supine-sit, and then max for sit-stand. Pt. is able to transfer with max assist to get to chair. OT facilitates breathing technique and transfer training while PT focuses on calming strategies and LE movement during transfer. Multiple lines and tubing make transfer difficult, and this increases pt.'s anxiety. Pt. holds onto OT's hand and states that she can't breathe. OT works on calming her while PT attempts to monitor oxygen level through pulse oxygen and through reminding her to breathe through her nose and out her mouth. Pt. becomes increasingly agitated, sitting up in chair , and states over and over that she can't breathe. Nursing is called into room. Oxygen monitor not picking up level. Nursing calls RT. Nursing resets pulse oximeter and increases vapotherm per RT. Sats come to 100% and pt. states that she feels better. Pt. is made comfortable with legs elevated and all needs met. Pt. in room with nursing after therapy session. Education OT Patient Education: Correct positioning, Energy conservation, Modified ADL techniques, Progress toward Goal/Update tx plan, Purpose of tx/functional activities, Reviewed precautions, Rehab process, Transfer techniques Teaching Recipient: Patient Teaching Methods: Demonstration, Discussion Response to Teaching: Verbalize Understanding, Return Demonstration OT Short Term Goals Short Term Goals Time Frame: Nov 07, 2017 Eating(FIM): 4 Grooming(FIM): 3 Upper Body Dressing(FIM): 3 Transfers (B,C,W/C) (FIM): 4 Additional Short Term Goals: 1-Demonstrate ADL Tasks, 2-Verbalize Understanding , 3-ImproveStrength/Romana 1=Demonstrate adherence to instructed precautions during ADL tasks. 2=Patient will verbalize/demonstrate understanding of assistive devices/ modifications for ADL. 3=Patient will improve strength/tolerance for activity to enable patient to perform ADL's. OT Mcc Goals Mcc Goals Time Frame: Nov 14, 2017 Eating (FIM): 5 Grooming(FIM): 4 Upper Body Dressing(FIM): 4 Lower Body Dressing(FIM): 3 Toileting(FIM): 3 Transfers (B,C,W/C) (FIM): 4 Toilet/Commode Transfer(FIM): 4 Additional Goals: 1-Demonstrate ADL Tasks, 2-Verbalize Understanding, 3- ImproveStrength/Romana 1=Demonstrate adherence to instructed precautions during ADL tasks. 2=Patient will verbalize/demonstrate understanding of assistive devices/ modifications for ADL. 3=Patient will improve strength/tolerance for activity to enable patient to perform ADL's. OT Education/Plan Problem List/Assessment Assessment: Decreased Activ Tolerance, Dependent Transfers, Impaired I ADL's, Impaired Self-Care Skills Discharge Recommendations Plan/Recommendations: Continue POC Therapy D/C Recommendations: 24 hr Supervision Treatment Plan/Plan of Care Treatment,Training & Education: Yes Patient would benefit from OT for education, treatment and training to promote independence in ADL's, mobility, safety and/or upper extremity function for ADL' s. Plan of Care: ADL Retraining, Caregiver Training, Functional Mobility, UE Funct Exercise/Act Treatment Duration: Nov 14, 2017 Frequency: 5 times per week Estimated Hrs Per Day: .25 hour per day Agreement: Yes Rehab Potential: Fair Time/GCodes Start Time: 08:30 Stop Time: 08:55 Total Time Billed (hr/min): 25 Billed Treatment Time 1, FA x 1(25 minutes but co-treat with PT. Please see note for designated roles.) VIDA QUISPE OT Nov 01, 2017 12:09
[2017-11-01] MEDS: MONTELUKAST 10 MG (SINGULAIR) TAB PO SCH (21:40)
[2017-11-02] VITALS (13 sets, daily range): BP systolic 118–132; BP diastolic 69–79
[2017-11-02] MEDS: PIPERACILLIN SODIUM/TAZOBACTAM 4.5 GM in NS (IVPB) 100 ML IV SCH (01:09)
[2017-11-02] MEDS: RT-ALBUTEROL/IPRATROPIUM 3 ML (DUONEB) VIAL INH SCH ×2 (01:15→06:07)
[2017-11-02] MEDS: methylPREDNISolone 40 MG/ML (Solu-MEDROL) VIAL IV SCH ×2 (03:20→08:14)
[2017-11-02 05:08] LABS: BASOPHILS % (AUTO) 0 % (0-10); EOSINOPHILS % (AUTO) 0 % (0-10); HEMATOCRIT 27 % (35-52); HEMOGLOBIN 8.6 G/DL (11.5-16.0); LYMPHOCYTES # (AUTO) 0.6 X 10^3 (1.0-4.0); LYMPHOCYTES % (AUTO) 8 % (12-44); MEAN CORPUSCULAR HEMOGLOBIN 32 PG (25-34); MEAN CORPUSCULAR HGB CONC 32 G/DL (32-36); MEAN CORPUSCULAR VOLUME 98 FL (80-99); MEAN PLATELET VOLUME 9.2 FL (7.4-10.4); MONOCYTES # (AUTO) 0.4 X 10^3 (0.0-1.0); MONOCYTES % (AUTO) 5 % (0-12); NEUTROPHILS # (AUTO) 6.8 X 10^3 (1.8-7.8); NEUTROPHILS % (AUTO) 88 % (42-75); PLATELET COUNT 434 10^3/uL (130-400); RED BLOOD COUNT 2.72 10^6/uL (4.35-5.85); RED CELL DISTRIBUTION WIDTH 14.9 % (10.0-14.5); WHITE BLOOD COUNT 7.8 10^3/uL (4.3-11.0)
[2017-11-02] MEDS: DEXMEDETOMIDINE INJECTION 200 MCG in NS (IVPB) 50 ML IV SCH (05:17)
[2017-11-02 05:44] LABS: BUN/CREATININE RATIO 14; CALCIUM 7.6 MG/DL (8.5-10.1); CARBON DIOXIDE 31 MMOL/L (21-32); CHLORIDE 101 MMOL/L (98-107); CREATININE SERUM 0.44 MG/DL (0.60-1.30); GFR ESTIMATED > 60; GLUCOSE 142 MG/DL (70-105); MAGNESIUM 1.6 MG/DL (1.8-2.4); PHOSPHORUS 1.6 MG/DL (2.3-4.7); POTASSIUM 3.8 MMOL/L (3.6-5.0); SODIUM 141 MMOL/L (135-145)
[2017-11-02] MEDS: KCL 20 MEQ TAB (K-DUR) PO SCH (06:00)
[2017-11-02] MEDS: POTASSIUM CL 10MEQ/50ML IVPB 50 ML IV SCH (06:00)
[2017-11-02] MEDS: MAGNESIUM 1 GM/100 ML IVPB 100 ML IV SCH ×3 (06:00→07:32)
[2017-11-02] MEDS: RT-BUDESONIDE NEBS 0.5 MG/2ML (PULMICORT) AMP INH SCH (06:07)
[2017-11-02] MEDS: FLUTICASONE NASAL SPRAY (FLONASE) 16 GM BTL NS SCH (06:14)
--- NOTE | 2017-11-02 06:24 | Pulmonary Progress Note ---
Subjective Time Seen by Provider: 06:20 Subjective/Events-last exam Pt is going to be transferred to [facility] for rehab therapy. Exam Exam Vital Signs Date Time Temp Pulse Resp B/P (MAP) Pulse Ox O2 Delivery O2 Flow Rate FiO2 11/02/17 06:09 98 Vapotherm 15.00 45 11/02/17 06:08 97 Vapotherm 15.00 45 11/02/17 06:00 93 28 126/79 (95) 98 Vapotherm 45.00 15.00 11/02/17 05:00 86 20 132/75 (94) 97 NIV Bilevel 30.00 11/02/17 04:00 NIV Bilevel 30 11/02/17 04:00 96.9 88 22 126/78 (94) 98 NIV Bilevel 30.00 11/02/17 03:00 81 15 126/77 (93) 98 NIV Bilevel 30.00 11/02/17 02:00 88 22 118/69 (85) 97 NIV Bilevel 30.00 11/02/17 01:15 75 17 97 30.00 11/02/17 01:00 75 11/02/17 01:00 76 31 128/71 (90) 98 NIV Bilevel 30.00 11/02/17 00:22 77 15 98 30.00 11/02/17 00:00 NIV Bilevel 30 11/02/17 00:00 97.4 77 13 124/73 (90) 98 NIV Bilevel 30.00 11/01/17 23:00 98 23 116/70 (85) 95 NIV Bilevel 30.00 11/01/17 22:00 80 12 117/71 (86) 97 NIV Bilevel 30.00 11/01/17 21:54 103 14 98 30.00 11/01/17 21:00 87 16 103/62 (76) 95 NIV Bilevel 30.00 11/01/17 20:06 100 18 94 30.00 11/01/17 20:00 98.4 103 24 149/97 (114) 100 NIV Bilevel 30.00 11/01/17 20:00 NIV Bilevel 30 11/01/17 19:00 93 11/01/17 19:00 103 24 119/66 (83) 91 Vapotherm 45.00 15.00 11/01/17 18:37 99 Vapotherm 15.00 45 11/01/17 18:36 98 Vapotherm 15.00 45 11/01/17 18:29 99 Vapotherm 15.00 45 11/01/17 18:00 93 24 121/70 (87) 100 Vapotherm 45.00 15.00 11/01/17 17:00 100 24 114/71 (85) 97 Vapotherm 45.00 15.00 11/01/17 16:34 97.9 11/01/17 16:00 93 19 112/69 (83) 98 Vapotherm 45.00 15.00 11/01/17 16:00 Vapotherm 15.00 45 11/01/17 15:00 100 23 109/65 (80) 98 Vapotherm 45.00 15.00 11/01/17 14:34 94 100 45 11/01/17 14:31 100 Vapotherm 15.00 45 11/01/17 14:00 92 24 120/74 (89) 97 Vapotherm 45.00 15.00 11/01/17 13:00 94 11/01/17 13:00 91 22 133/88 (103) 97 Vapotherm 45.00 15.00 11/01/17 12:00 98.2 11/01/17 12:00 Vapotherm 15.00 45 11/01/17 12:00 93 18 119/73 (88) 98 Vapotherm 45.00 15.00 11/01/17 11:00 98 19 116/68 (84) 99 Vapotherm 45.00 15.00 11/01/17 10:35 94 Vapotherm 15.00 45 11/01/17 10:00 90 19 112/60 (77) 98 Vapotherm 45.00 15.00 11/01/17 09:10 98 Vapotherm 15.00 45 11/01/17 09:00 97 28 118/72 (87) 96 Vapotherm 45.00 20.00 11/01/17 08:26 98.7 11/01/17 08:00 Vapotherm 20.00 45 11/01/17 08:00 99 17 133/80 (97) 98 Vapotherm 45.00 20.00 11/01/17 07:37 Vapotherm 45.00 20.00 11/01/17 07:00 90 11/01/17 07:00 92 16 121/73 (89) 95 NIV Bilevel 35.00 I & O 11/02/17 07:00 Intake Total 1533 ml Output Total 1180 ml Balance 353 ml General Appearance: Anxious, Moderate Distress HEENT: PERRL/EOMI, Normal ENT Inspection, Pharynx Normal Neck: No Carotid Bruit Respiratory: Chest Non Tender, Normal Breath Sounds, No Accessory Muscle Use, No Respiratory Distress Cardiovascular: Regular Rate, Rhythm, No Edema, No Gallop Capillary Refill: Less Than 3 Seconds Gastrointestinal: non tender, soft Extremity: Normal Capillary Refill, Normal Inspection, Normal Range of Motion, Non Tender, No Calf Tenderness, No Pedal Edema Neurologic/Psychiatric: Alert, Oriented x3 Skin: Normal Color, Warm/Dry Lymphatic: No Adenopathy Results Lab Laboratory Tests 11/01/17 04:55 11/01/17 06:48 11/02/17 04:30 Assessment/Plan Assessment/Plan Acute Respiratory Distress - Precedex, and morphine D/C Ativan and Fentanyl -BiPAP PRN/highflow oxygen -Titrate Fi02 COPDAE BiPAP to 15/6 PRN -SVNs, advair -SOlumedrol Anxiety -start Risperdal Debility/weakness -PT/OT -PT will be too weak for living at home. UTI -Zosyn Allergic rhinitis -singulair, claritin, flonase Pt is transferring to [facility] for pulmonary rehab. 233 Clinical Quality Measures DVT/VTE Risk/Contraindication: Risk Factor Score Per Nursin RFS Level Per Nursing on Admit: 4+=Very High PINEDA ROBB DO Nov 02, 2017 06:24
--- NOTE | 2017-11-02 07:05 | Diagnostic Imaging Report ---
Indication: Respiratory distress Portable chest 5:06 AM Heart size and pulmonary vascularity are normal. There are emphysematous changes in the lungs. There are no infiltrates, effusions or pneumothoraces. Impression: COPD. No acute abnormalities seen. Dictated by: Dictated on workstation # [id number]
[2017-11-02] MEDS: LORATADINE (CLARITIN) 10 MG TAB PO SCH (08:14)
[2017-11-02] MEDS: risperiDONE 0.25 MG (RisperDAL) TAB PO SCH (08:14)
[2017-11-02] MEDS: ENOXAPARIN 40 MG/0.4 ML (LOVENOX) SYR SC SCH (08:15)
[2017-11-02] MEDS: SALINE NASAL SPRAY (OCEAN) 45 ML BTL SCH (08:20)
[2017-11-02] MEDS: 1/2 NS IV SCH (08:28)
[2017-11-02] MEDS: POTASSIUM CHLORIDE IV SCH (08:28)
[2017-11-02] MEDS: morphine INJ 4 MG/ML 1 ML (VIAL/SYRINGE) IVP PRN (09:06)
--- NOTE | 2017-11-02 10:36 | Discharge Summary-Hospitalist ---
Diagnosis/Chief Complaint Date of Admission Oct 26, 2017 at 17:50 Date of Discharge Nov 02, 2017 at 09:12 Admission Diagnosis Assessment: Acute on chronic respiratory failure Acute bronchitis w/early right upper lobe infiltrate on CXR Frail status Chronic 24/7 O2 dependency Discharge Diagnosis Assessment: Acute on chronic respiratory failure and unable to wean off aggressive respiratory support now on Vapotherm but consulted [place] [facility] for transfer due to terminal carman issues expected Acute bronchitis w/early right upper lobe infiltrate on CXR maintained on abx Zosyn Frail status and does not appear to be a candidate for long-term intubation due to likelihood of never being able to be extubated and poor quality of life Chronic 24/7 O2 dependency Hypernatremia improved Hypokalemia supplementing Hypomagnesemia Plan: Monitor pt May need intubation but if that should occur likely will be unable to extubate and she will need a long-term vent facility and it doesn't appear that her quality of life will improve in that type of situation Poor prognosis if requires intubation due to severe COPD Appreciate Dr Tubbs's help Maintain change IV fluids due to hypernatremia Replace potassium and magnesium Discharge Summary Discharge Physical Examination Allergies: Coded Allergies: No Known Drug Allergies (Unverified , 10/26/17) Vitals & I&Os Vital Signs Date Time Temp Pulse Resp B/P (MAP) Pulse Ox O2 Delivery O2 Flow Rate FiO2 11/02/17 09:12 101 27 122/70 97 Vapotherm 15.00 11/02/17 08:15 35 11/02/17 07:33 98.7 Hospital Course Hospital course: Patient had a lengthy hospital course she required ICU admission for severe exacerbation of COPD and respiratory failure and maintained on BiPAP during most of the hospital course. Due to her frail status and residual pneumonia she was felt to have a long-term course for respiratory failure so [facility] [facility] was consulted who graciously accepted the admission. Overall her labs remained within normal limits after IV fluids change due to hypernatremia and hypokalemia and hypomagnesemia were all supplemented during her ICU stay. Overall patient required [facility] admission due to suspected long-term management for her acute on chronic respiratory failure and everyone was in agreement to transfer for definitive management of chronic respiratory failure. Labs (last 24 hrs) Laboratory Tests 11/02/17 04:30: White Blood Count 7.8, Red Blood Count 2.72L, Hemoglobin 8.6L, Hematocrit 27L, Mean Corpuscular Volume 98, Mean Corpuscular Hemoglobin 32, Mean Corpuscular Hemoglobin Concent 32, Red Cell Distribution Width 14.9H, Platelet Count 434H, Mean Platelet Volume 9.2, Neutrophils (%) (Auto) 88H, Lymphocytes (%) (Auto) 8L , Monocytes (%) (Auto) 5, Eosinophils (%) (Auto) 0, Basophils (%) (Auto) 0, Neutrophils # (Auto) 6.8, Lymphocytes # (Auto) 0.6L, Monocytes # (Auto) 0.4, Eosinophils # (Auto) 0.0, Basophils # (Auto) 0.0, Sodium Level 141, Potassium Level 3.8, Chloride Level 101, Carbon Dioxide Level 31, Anion Gap 9, Blood Urea Nitrogen 6L, Creatinine 0.44L, Estimat Glomerular Filtration Rate > 60, BUN/ Creatinine Ratio 14, Glucose Level 142H, Calcium Level 7.6L, Phosphorus Level 1.6L, Magnesium Level 1.6L Microbiology 10/26/17 Urine Culture - Final, Complete Citrobacter Amalonaticus Enterococcus Faecalis Enterobacter Cloacae Pending Labs Laboratory Tests 11/02/17 04:30: White Blood Count 7.8, Red Blood Count 2.72, Hemoglobin 8.6, Hematocrit 27, Mean Corpuscular Volume 98, Mean Corpuscular Hemoglobin 32, Mean Corpuscular Hemoglobin Concent 32, Red Cell Distribution Width 14.9, Platelet Count 434, Mean Platelet Volume 9.2, Neutrophils (%) (Auto) 88, Lymphocytes (%) (Auto) 8, Monocytes (%) (Auto) 5, Eosinophils (%) (Auto) 0, Basophils (%) (Auto) 0, Neutrophils # (Auto) 6.8, Lymphocytes # (Auto) 0.6, Monocytes # (Auto) 0.4, Eosinophils # (Auto) 0.0, Basophils # (Auto) 0.0, Sodium Level 141, Potassium Level 3.8, Chloride Level 101, Carbon Dioxide Level 31, Anion Gap 9, Blood Urea Nitrogen 6, Creatinine 0.44, Estimat Glomerular Filtration Rate > 60, BUN/ Creatinine Ratio 14, Glucose Level 142, Calcium Level 7.6, Phosphorus Level 1.6 , Magnesium Level 1.6 Discharge Home Medications: Active Scripts Active Reported Glucosamine & Chondroitin Cap (Glucosa [place] 2Kcl/Chondroitin [place]) 1 Each Capsule 1 Cap PO DAILY Vitamin C (Ascorbic Acid) 500 Mg Tablet 500 Mg PO 1300 Iprat-Albut 0.5-3(2.5) mg/3 ml (Ipratropium/Albuterol Sulfate) 3 Ml Ampul.neb 3 Ml IH Q6H PRN Fiber Therapy (Calcium Polycarbophil) 625 Mg Tablet 625 Mg PO UD TAKES DAILY X3 DAYS THEN OFF 3 DAYS THEN REPEAT Afrin (Oxymetazoline HCl) 30 Ml [place] 2-3 [place] NS BID PRN Fish Oil 1,000 mg Capsule ([place] 3 Polyunsat Fatty Acids) 1,000 Mg Cap 2,000 Mg PO DAILY TAKES 2 (1000MG) CAPSULES Garlic 500 Mg Tablet 2 Tab PO 1300 Garlic 500 Mg Tablet 1 Tab PO BID Calcium 600 + Vit D3 Caplet (Calcium Carbonate/Vitamin D3) 1 Each Tablet 1 Tab PO 1500,2100 Aspirin EC (Aspirin) 81 Mg Tablet.dr 81 Mg PO BID Nexium (Esomeprazole Magnesium) 40 Mg Cap 40 Mg PO BID Symbicort 160-4.5 Mcg Inhaler (Budesonide/Formoterol Fumarate) 10.2 Gm Hfa.aer.ad 2 Puff INH 1500,2100 Toprol Xl (Metoprolol Succinate) 25 Mg Tab.er.24h 25 Mg PO DAILY Spiriva (Tiotropium [place]) 1 Inh Aerp 1 Cap INH DAILY Levothyroxine Sodium 50 Mcg Tablet 50 Mcg PO DAILY Raloxifene HCl 60 Mg Tablet 60 Mg PO 1400 Mucinex Dm ER 1,200-60 mg Tab (Guaifenesin/Dextromethorphan) 1 Each Tbmp.12hr 1 Tab PO BID Ibandronate Sodium 150 Mg Tablet 150 Mg PO MONTHLY ON THE 1ST Alprazolam 0.25 Mg Tablet 0.125 Mg PO BID PRN Nystatin 15 Gm Cream..g. TOP QID PRN Ferrous Sulfate 220 Mg/5 Ml Elixir 5 Ml PO BID Methylprednisolone 4 Mg Tab.ds.pk PO UD 6 Days 6 DAY SUPPLY FILLED 10-25-17 Amox Tr-K Clv 875-125 mg Tab (Amoxicillin/Potassium Clav) 1 Each Tablet 1 Tab PO BID 7 Days 7 DAY SUPPLY FILLED 10-25-17 Klor-Con M10 (Potassium Chloride) 10 Meq Tab.er.prt 10 Meq PO DAILY Furosemide 20 Mg Tablet 20 Mg PO DAILY Instructions to patient/family Please see electronic discharge instructions given to patient. Clinical Quality Measures DVT/VTE Risk/Contraindication: Risk Factor Score Per Nursin RFS Level Per Nursing on Admit: 4+=Very High TERESA ACOSTA DO Nov 02, 2017 10:35
== END 2017-11-02 09:12 | DRG 189 ==
LOC: ICU 17:50
PROVIDERS: ADMIT Internal Medicine; ATTEND Internal Medicine
DX: J95.822 Acute and chronic postprocedural respiratory failure (principal); J43.9 Emphysema, unspecified; J20.9 Acute bronchitis, unspecified; J30.9 Allergic rhinitis, unspecified; N39.0 Urinary tract infection, site not specified; E87.0 Hyperosmolality and hypernatremia; E87.6 Hypokalemia; E83.42 Hypomagnesemia; I87.8 Other specified disorders of veins; R00.0 Tachycardia, unspecified; K21.9 Gastro-esophageal reflux disease without esophagitis; F41.9 Anxiety disorder, unspecified; M81.0 Age-related osteoporosis without current pathological fracture; Z87.891 Personal history of nicotine dependence; Z99.81 Dependence on supplemental oxygen
CPT/HCPCS: 36415; 71010; 71045; 80048; 80053; 80202; 81000; 82805; 83605; 83735; 83880; 84100; 84484; 85007; 85025; 85027; 87077; 87088; 87186; 94640; 94660

== ENCOUNTER 2017-12-31 04:32 | Inpatient (IN) | payer MEDICARE, OTHER ==
[2017-12-31] VITALS (12 sets, daily range): BP systolic 99–126; BP diastolic 71–93
[~2017-12-31] VITALS: Ht 152.4 cm; Wt 43.2 kg
[~2017-12-31 04:32] MED LIST: ALPR0.254 PO; AMOX1TAB12 PO; ASCO500T6 PO; ASPI-983 PO; BUDE10.2 INH; CALC-903 PO; CALC625T68 PO; FESO45ML PO; FURO20TA4 PO; GARL500T4 PO; GLUC1CAP37 PO; GUAI1TBM19 PO; IBAN150T8 PO; IPRA3AMP IH; LEVO50TA6 PO; METH4TAB10 PO; METO-351 PO; NF-ESOM40C PO; NYST15CR TOP; OMG1KC PO; OXYM30SP NS; POTA10TA14 PO; RALO60TA12 PO; TIOT18CA2 INH
[2017-12-31] MEDS ORDERED: NS (IVPB) 250 ML ONE (05:56)
[2017-12-31] MEDS ORDERED: NOREPINEPHRINE 4 MG/4 ML (LEVOPHED) AMP IV ONE (05:57)
[2017-12-31] MEDS ORDERED: NS IV 1000 ML 1,000 ML ONE (06:03)
[2017-12-31] MEDS ORDERED: PROPOFOL DRIP (ICU) 100 ML IV ONE (06:07)
[2017-12-31] MEDS ORDERED: NOREPINEPHRINE 4 MG in NS (IVPB) 250 ML IV SCH (06:15)
[2017-12-31] MEDS: NS IV 1000 ML 1,000 ML IV SCH ×2 (06:26→08:15)
[2017-12-31] MEDS ORDERED: CATHETER FLUSH 10 ML SYR IV PRN (06:30)
[2017-12-31] MEDS ORDERED: PROPOFOL DRIP (ICU) 100 ML IV SCH (06:30)
[2017-12-31] MEDS ORDERED: VANCOMYCIN INJECTION 0.1 MG in NS (IVPB) 250 ML IV SCH (06:30)
[2017-12-31] MEDS ORDERED: KCL 20 MEQ TAB (K-DUR) PO SCH (06:57)
[2017-12-31] MEDS ORDERED: VANCOMYCIN INJECTION 500 MG in NS (IVPB) 100 ML IV NR (07:15)
[2017-12-31 07:24] LABS: BASOPHILS % (AUTO) 0 % (0-10); EOSINOPHILS # (AUTO) 0.2 10^3/uL (0.0-0.3); EOSINOPHILS % (AUTO) 2 % (0-10); HEMATOCRIT 28 % (35-52); HEMOGLOBIN 8.4 G/DL (11.5-16.0); LYMPHOCYTES % (AUTO) 9 % (12-44); MEAN CORPUSCULAR HEMOGLOBIN 29 PG (25-34); MEAN CORPUSCULAR HGB CONC 30 G/DL (32-36); MEAN CORPUSCULAR VOLUME 98 FL (80-99); MEAN PLATELET VOLUME 8.9 FL (7.4-10.4); MONOCYTES # (AUTO) 0.9 X 10^3 (0.0-1.0); MONOCYTES % (AUTO) 8 % (0-12); NEUTROPHILS # (AUTO) 8.5 X 10^3 (1.8-7.8); NEUTROPHILS % (AUTO) 81 % (42-75); PLATELET COUNT 383 10^3/uL (130-400); RED BLOOD COUNT 2.87 10^6/uL (4.35-5.85); RED CELL DISTRIBUTION WIDTH 16.6 % (10.0-14.5); WHITE BLOOD COUNT 10.5 10^3/uL (4.3-11.0)
[2017-12-31] MEDS: inSUlin (REGULAR) HUMAN 1 UNIT/0.01 ML (CHARGE PER UNIT) SC SCH ×2 (07:25→12:40)
[2017-12-31 07:33] LABS: INR 0.9 (0.8-1.4); PROTHROMBIN TIME PATIENT 11.9 SEC (12.2-14.7)
[2017-12-31 07:44] LABS: BUN/CREATININE RATIO 21; CARBON DIOXIDE 27 MMOL/L (21-32); CHLORIDE 107 MMOL/L (98-107); CHOLESTEROL 163 MG/DL (< 200); CREATININE SERUM 0.53 MG/DL (0.60-1.30); GFR ESTIMATED > 60; GLUCOSE 132 MG/DL (70-105); HDL CHOLESTEROL 50 MG/DL (40-60); MAGNESIUM 1.4 MG/DL (1.8-2.4); PHOSPHORUS 2.6 MG/DL (2.3-4.7); POTASSIUM 4.2 MMOL/L (3.6-5.0); SODIUM 144 MMOL/L (135-145); TRIGLYCERIDES 88 MG/DL (<150); VLDL CHOLESTEROL 18 MG/DL (5-40)
[2017-12-31] MEDS ORDERED: RT-ALBUTEROL/IPRATROPIUM 3 ML (DUONEB) VIAL INH SCH (08:00)
[2017-12-31] MEDS: methylPREDNISolone 40 MG/ML (Solu-MEDROL) VIAL IV SCH ×2 (08:14→12:39)
--- NOTE | 2017-12-31 09:41 | Diagnostic Imaging Report ---
INDICATION: Central venous catheter evaluation 0919 hours Portable semiupright AP view of the chest is obtained with comparison made to study of 11/02/2017. There has been placement of endotracheal tube with tip just below the thoracic inlet. Nasogastric tube passes below the diaphragm. There is a right jugular central venous catheter which reaches the mid superior vena cava. There is extensive air trapping in the upper lobes with prominent interstitial markings throughout the lungs. No pneumothorax is seen. IMPRESSION: Probable COPD without evidence of acute abnormality post intubation. Dictated by: Dictated on workstation # [id number]
[2017-12-31] MEDS: RT-ALBUTEROL/IPRATROPIUM 3 ML (DUONEB) VIAL INH SCH ×3 (09:57→14:05)
[2017-12-31] MEDS ORDERED: ceFAZolin INJECTION 1,000 MG in NS (IVPB) 100 ML IV SCH (11:00)
--- NOTE | 2017-12-31 11:51 | History & Physical-Hospitalist ---
HPI History of Present Illness: HPI/Chief Complaint CC: Respiratory failure HPI: This is a 72yoWF known to me from prior admit due to respiratory failure requiring several days in ICU on biPAP and Vapotherm who was eventually sent to [facility] for further management of the severe lung disease. It is thought she still smokes. I was called by David at [facility] last night at 0415 in need of transferring the patient due to intubation. She remains a full code and was very clear she wanted everything done to save her life regardless of the need for eventual trach and vent dependency. Currently she is sedated on the vent. Source: RN/MD Exam Limitations: clinical condition (intubated) Date Seen 12/31/17 Time Seen by Provider: 10:40 Attending Physician Lyndsey Saldana Lisa A MD Referring Physician Date of Admission Dec 31, 2017 at 05:53 Home Medications & Allergies Home Medications Reviewed patient Home Medication Reconciliation Form Allergies Allergies Coded Allergies No Known Drug Allergies (Pwpwqhusal68/28/17) Past Evnaplz-Pvqkjq-Yowyml Hx Patient Social History Marrital Status: Employed/Student: retired Smoking Status: Current Everyday Smoker Type Used: Cigarettes Recent Foreign Travel: No Contact w/other who traveled: Yes Recent Hopitalizations: Yes Recent Infectious Disease Expo: No Immunizations Up To Date Date of Pneumonia Vaccine: Oct 17, 2016 Seasonal Allergies Seasonal Allergies: No Surgeries Yes Respiratory Yes COPD, Emphysema, Pneumonia Currently Using BIPAP: Yes Cardiovascular Yes (TACHYCARDIA) Hypertension Neurological No Genitourinary No Gastrointestinal Yes Gastroesophageal Reflux Musculoskeletal Yes Osteoporosis, Fractures Endocrine History of Endocrine Disorders: No HEENT History of HEENT Disorders: No Cancer No Psychosocial History of Psychiatric Problem: Yes Behavioral Health Disorders: Anxiety Integumentary History of Skin or Integumenta: No Family Medical History Family Hx: Patient reports no known family medical history. Review of Systems ROS-Unable to Obtain: unable to obtain Constitutional: see HPI Physical Exam Physical Exam Vital Signs Vital Signs - First Documented 12/31/17 12/31/17 12/31/17 05:53 06:38 07:00 Temp 98.6 Pulse 102 Resp 12 B/P (MAP) 110/80 (90) Pulse Ox 95 O2 Delivery Mechanical Ventilator O2 Flow Rate 40.00 FiO2 40 Capillary Refill : General Appearance: No Apparent Distress, WD/WN, Chronically ill, Thin, Other ( frail, more declined than last assessment) Eyes: Bilateral Eye Normal Inspection, Bilateral Eye PERRL Neck: Carotid Bruit Respiratory: No Accessory Muscle Use, No Respiratory Distress, Crackles, Decreased Breath Sounds, Wheezing Cardiovascular: Regular Rate, Rhythm, No Edema, No Gallop, No JVD, No Murmur, Normal Peripheral Pulses Gastrointestinal: Normal Bowel Sounds, No Organomegaly, No Pulsatile Mass, Soft Back: No Vertebral Tenderness Extremity: Normal Capillary Refill, Normal Inspection, Normal Range of Motion, No Pedal Edema Neurologic/Psychiatric: Other (sedated) Skin: Normal Color, Warm/Dry Lymphatic: No Adenopathy Results Results/Procedures Lab Laboratory Tests 12/31/17 07:09 Assessment/Plan Admission Diagnosis Assessment: Severe acute on chronic respiratory failure requiring intubation due to respiratory acidosis Severe COPD Presumed continued smoking Tachycardia HTN Chronic anemia Admission Status: Inpatient Order (span 2 midnights) Reason for Inpatient Admission: Resp failure requiring intubation Assessment and Plan Plan: Maintain intubation Appreciate Dr Tubbs consultation Poor prognosis Clinical Quality Measures DVT/VTE Risk/Contraindication: Risk Factor Score Per Nursin RFS Level Per Nursing on Admit: 4+=Very High LYNDSEY SALDANA DO Dec 31, 2017 11:51
--- NOTE | 2017-12-31 12:13 | Consultation ---
History of Present Illness History of Present Illness Patient Consulted On(dewayne/time) 12/31/17 12:07 Date Seen by Provider: Dec 31, 2017 Time Seen by Provider: 07:48 History of Present Illness Consult requested by Dr. Saldnaa for central line placement. Patient is a 72 year old female who was transferred from [facility]. She is intubated and requiring Levophed to due to hypotension. Patient is alert but unable to provide any information due to intubation. No family present at bedside at this time. Allergies and Home Medications Allergies Coded Allergies: No Known Drug Allergies (Unverified , 10/26/17) Home Medications Alprazolam 0.25 Mg Tablet, 0.125 MG PO BID PRN for ANXIETY, (Reported) Amoxicillin/Potassium Clav 1 Each Tablet, 1 TAB PO BID, (Reported) 7 DAY SUPPLY FILLED 10-25-17 Ascorbic Acid 500 Mg Tablet, 500 MG PO 1300, (Reported) Aspirin 81 Mg Tablet.dr, 81 MG PO BID, (Reported) Budesonide/Formoterol Fumarate 10.2 Gm Hfa.aer.ad, 2 PUFF INH 1500,2100, ( Reported) Calcium Carbonate/Vitamin D3 1 Each Tablet, 1 TAB PO 1500,2100, (Reported) Calcium Polycarbophil 625 Mg Tablet, 625 MG PO UD, (Reported) TAKES DAILY X3 DAYS THEN OFF 3 DAYS THEN REPEAT Esomeprazole Magnesium 40 Mg Cap, 40 MG PO BID, (Reported) Ferrous Sulfate 220 Mg/5 Ml Elixir, 5 ML PO BID, (Reported) Furosemide 20 Mg Tablet, 20 MG PO DAILY, (Reported) Garlic 500 Mg Tablet, 1 TAB PO BID, (Reported) Garlic 500 Mg Tablet, 2 TAB PO 1300, (Reported) Glucosa [place] 2Kcl/Chondroitin [place] 1 Each Capsule, 1 CAP PO DAILY, (Reported) Guaifenesin/Dextromethorphan 1 Each Tbmp.12hr, 1 TAB PO BID, (Reported) Ibandronate Sodium 150 Mg Tablet, 150 MG PO MONTHLY ON THE , (Reported) Ipratropium/Albuterol Sulfate 3 Ml Ampul.neb, 3 ML IH Q6H PRN for SHORTNESS OF BREATH, (Reported) Levothyroxine Sodium 50 Mcg Tablet, 50 MCG PO DAILY, (Reported) Methylprednisolone 4 Mg Tab.ds.pk, PO UD, (Reported) 6 DAY SUPPLY FILLED 12-27-17 Metoprolol Succinate 25 Mg Tab.er.24h, 25 MG PO DAILY, (Reported) Nystatin 15 Gm Cream..g., TOP QID PRN for RASH, (Reported) [place] 3 Polyunsat Fatty Acids 1,000 Mg Cap, 2,000 MG PO DAILY, (Reported) TAKES 2 (1000MG) CAPSULES Oxymetazoline HCl 30 Ml [place], 2-3 SPRAY NS BID PRN for CONGESTION, (Reported) Potassium Chloride 10 Meq Tab.er.prt, 10 MEQ PO DAILY, (Reported) Raloxifene HCl 60 Mg Tablet, 60 MG PO 1400, (Reported) Tiotropium [place] 1 Inh Aerp, 1 CAP INH DAILY, (Reported) Patient Home Medication List Home Medication List Reviewed: Yes Past Tkvtikx-Khcews-Wqauvq Hx Patient Social History Type Used: Cigarettes Recent Foreign Travel: No Contact w/Someone Who Travel: Yes Recent Infectious Disease Expo: No Recent Hopitalizations: Yes Immunizations Up To Date Date of Pneumonia Vaccine: Oct 17, 2016 Seasonal Allergies Seasonal Allergies: No Surgeries History of Surgeries: Yes Respiratory History of Respiratory Disorde: Yes Respiratory Disorders: COPD, Emphysema Cardiovascular History of Cardiac Disorders: Yes (TACHYCARDIA) Neurological History of Neurological Disord: No Genitourinary History of Genitourinary Disor: No Gastrointestinal History of Gastrointestinal Di: Yes Gastrointestinal Disorders: Gastroesophageal Reflux Musculoskeletal History of Musculoskeletal Dis: Yes Musculoskeletal Disorders: Osteoporosis, Fractures Endocrine History of Endocrine Disorders: No HEENT History of HEENT Disorders: No Cancer History of Cancer: No Psychosocial History of Psychiatric Problem: Yes Behavioral Health Disorders: Anxiety Integumentary History of Skin or Integumenta: No Family Medical History Significant Family History: No Pertinent Family Hx (unable to obtain) Family Medial History: Patient reports no known family medical history. Review of Systems-General ROS-Unable to Obtain: due to patient condition and intubated Physical Exam-General Problems Physical Exam Vital Signs Vital Signs - First Documented 12/31/17 12/31/17 12/31/17 05:53 06:38 07:00 Temp 98.6 Pulse 102 Resp 12 B/P (MAP) 110/80 (90) Pulse Ox 95 O2 Delivery Mechanical Ventilator O2 Flow Rate 40.00 FiO2 40 Capillary Refill : General Appearance: mild distress (intubated) HEENT: PERRL/EOMI, other (intubated) Neck: supple Respiratory: respiratory distress Cardiovascular: tachycardia Gastrointestinal: non tender, soft Rectal: deferred Extremities: non-tender, normal inspection 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 tested, no motor/sensory deficits, alert Skin: warm/dry Lymphatic: no adenopathy Data Review Labs Laboratory Tests 12/31/17 07:09: White Blood Count 10.5, Red Blood Count 2.87L, Hemoglobin 8.4L, Hematocrit 28L, Mean Corpuscular Volume 98, Mean Corpuscular Hemoglobin 29, Mean Corpuscular Hemoglobin Concent 30L, Red Cell Distribution Width 16.6H, Platelet Count 383, Mean Platelet Volume 8.9, Neutrophils (%) (Auto) 81H, Lymphocytes (%) (Auto) 9L , Monocytes (%) (Auto) 8, Eosinophils (%) (Auto) 2, Basophils (%) (Auto) 0, Neutrophils # (Auto) 8.5H, Lymphocytes # (Auto) 1.0, Monocytes # (Auto) 0.9, Eosinophils # (Auto) 0.2, Basophils # (Auto) 0.0, Prothrombin Time 11.9L, INR Comment 0.9, Sodium Level 144, Potassium Level 4.2, Chloride Level 107, Carbon Dioxide Level 27, Anion Gap 10, Blood Urea Nitrogen 11, Creatinine 0.53L, Estimat Glomerular Filtration Rate > 60, BUN/Creatinine Ratio 21, Glucose Level 132H, Lactic Acid Level 1.35, Calcium Level 8.0L, Phosphorus Level 2.6, Magnesium Level 1.4L, B-Type Natriuretic Peptide 80.5, Triglycerides Level 88, Cholesterol Level 163, LDL Cholesterol Direct 96, VLDL Cholesterol 18, HDL Cholesterol 50 Assessment/Plan Assessment/Plan Assessment/Plan respiratory failure hypotension requiring pressors need central venous access patient intubated and on pressors. Central line to be placed. medical management Clinical Quality Measures DVT/VTE Risk/Contraindication: Risk Factor Score Per Nursin RFS Level Per Nursing on Admit: 4+=Very High KI ROBERTS DO Dec 31, 2017 12:13
--- NOTE | 2017-12-31 13:05 | OPERATIVE REPORT ---
DATE OF SERVICE: 12/31/2017 PREOPERATIVE DIAGNOSES: Respiratory failure, hypotension requiring pressors, and need central venous access. POSTOPERATIVE DIAGNOSES: Respiratory failure, hypotension requiring pressors, and need central venous access. PROCEDURE: Right internal jugular vein ultrasound-guided central line placement. SURGEON: Ki Silva DO ANESTHESIA: 1% local. ESTIMATED BLOOD LOSS: Minimal. COMPLICATIONS: None. INDICATIONS: The patient is a 72-year-old female, who was transferred from [facility]. She is in respiratory failure, has been intubated. The patient needs a central line for continued pressor management. She demonstrates understanding of the need for this. No family present at this time. DESCRIPTION OF PROCEDURE: The patient was prepped and draped in sterile fashion. A timeout was performed. Ultrasound was used to locate the right internal jugular vein. Lidocaine 1% was injected just above the vein creating . Under ultrasound guidance, the right internal jugular vein was then accessed, dark nonpulsatile blood was withdrawn. A guidewire was inserted through the needle and the needle was then removed. A stab incision was made with an 11 blade scalpel and a dilator was advanced over the wire and removed. A triple lumen catheter was then advanced over the guidewire and the wire was removed. All ports were flushed and accessed without difficulty. The catheter was sutured using 3-0 silk suture at approximately 13 cm. The area was then washed and dried, sterile bandage was applied. The patient tolerated the procedure well without any complications. Chest x-ray is pending. Job ID: [id number] DocumentID: [id number] Dictated Date: 12/31/2017 12:21:47 Skin Care Specialist Date: 12/31/2017 13:04:27 Dictated By: KI SILVA DO
[2018-01-01] MEDS ORDERED: MAGNESIUM 1 GM/100 ML IVPB 100 ML IV SCH (06:00)
[2018-01-01] MEDS ORDERED: POTASSIUM CL 10MEQ/50ML IVPB 50 ML IV SCH (06:00)
== END 2017-12-31 15:00 | disposition short-term general hospital (02) | DRG 208 ==
LOC: ICU 05:53
PROVIDERS: ADMIT Internal Medicine; ATTEND Internal Medicine
PROC: 5A1935Z Respiratory Ventilation, Less than 24 Consecutive Hours (ICD-10-PCS; principal; 2017-12-31)
DX: J96.20 Acute and chronic respiratory failure, unspecified whether with hypoxia or hypercapnia (principal); E87.2 Acidosis; J43.9 Emphysema, unspecified; F17.210 Nicotine dependence, cigarettes, uncomplicated; R00.0 Tachycardia, unspecified; I10 Essential (primary) hypertension; D64.9 Anemia, unspecified; F41.9 Anxiety disorder, unspecified; K21.9 Gastro-esophageal reflux disease without esophagitis; M81.0 Age-related osteoporosis without current pathological fracture; I95.9 Hypotension, unspecified
CPT/HCPCS: 36415; 71045; 80048; 80061; 82962; 83605; 83735; 83880; 84100; 85025; 85610; 87040; 87070; 87081; 87205; 94640; 94799